=== PATIENT | male | born 1945 | race Caucasian/White ===

== ENCOUNTER 2017-02-05 05:46 | Day surgery (SDC) | payer MEDICARE ==
[2017-02-05] MEDS ORDERED: DIPRIVAN 200 MG/20 ML IV ONE (05:47)
[2017-02-05] MEDS ORDERED: Lactated Ringers 1,000 ML IV SCH (06:00)
[2017-02-05 08:08] VITALS: O2SAT 97
[2017-02-05 08:46] VITALS: BP 138/72; PULSE 72
--- NOTE | 2017-02-05 14:10 | OP ---
SURGERY DATE/TIME: 02/05/2017712 PREOPERATIVE DIAGNOSIS: Low abdominal pain and change in bowel habits. POSTOPERATIVE DIAGNOSIS: Small prostate nodule in the right lobe inferior portion of the prostate and normal colon. PROCEDURE: Colonoscopy. SURGEON: Dr. Kyle. ANESTHESIA: MAC. Medications given by anesthesia department. HISTORY: The patient is a 71 year-old white male patient presenting now for complaints of abdominal pain and some change in bowel habits. The patient was felt to need to have endoscopic evaluation. He was appraised of the risks of the procedure including the risk of perforation, phlebitis, untoward reaction to medication, bleeding and missed lesions. The patient verbalized his understanding and desired to have the procedure performed. DESCRIPTION OF PROCEDURE: The patient was given the medications by the anesthesia department. He had continuous pulse oximetry, ECG monitoring, intermittent blood pressure monitoring and tidal CO2 monitoring during the examination. He was placed in the left lateral decubitus position. A digital rectal examination was performed and revealed normal anal sphincter tone. There did appear to be a pea-sized nodule that was firm in the inferior portion of the right lobe of the prostate. The flexible Olympus pediatric colonoscope was used to intubate the rectum. A view of the colon was developed sequentially to the cecum. Upon insertion and withdrawal, including a retroflex view in the rectum, no mucosal lesions were encountered. The scope was removed from the patient who tolerated the procedure well and was sent back to OP recovery in good condition. The prep was noted to be fair to good.
== END 2017-02-05 08:30 | disposition home or self-care (01) ==
LOC: SDC 05:46 → EDSTATUS 09:43
PROVIDERS: ATTEND Family Medicine
PROC: 0DJD8ZZ Inspection of Lower Intestinal Tract, Via Natural or Artificial Opening Endoscopic (ICD-10-PCS; principal; 2017-02-05)
DX: R10.30 Lower abdominal pain, unspecified (principal); N40.2 Nodular prostate without lower urinary tract symptoms; R19.4 Change in bowel habit
CPT/HCPCS: 00810; 99100; J2704

== ENCOUNTER 2018-09-08 13:18 | Emergency (ER) | payer MEDICARE ==
[2018-09-08] MEDS ORDERED: Sodium Chloride 0.9% 1000 ML 1,000 ML IV STA (13:40)
[2018-09-08] MEDS ORDERED: Sodium Chloride 0.9% 1000 ML 1,000 ML ONE (13:57)
[2018-09-08 14:07] LABS: BASOPHIL % 0.4 % (0.0-0.4); Basophil (Absolute #) 0.03 (0-0.4); Eosinophil % 2.8 % (0.00-5.0); Eosinophil (Absolute #) 0.19 (0-0.5); Granulocyte Absolute (ANC) 4.54 (1.4-6.9); Granulocytes % 65.9 % (36.0-66.0); Hematocrit 39.6 % (42-50); Hemoglobin 13.6 gm/dl (12.5-18.0); Lymphocyte (Absolute #) 1.44 (1.0-4.6); Lymphocytes % 20.9 % (24.0-44.0); Mean Cell Volume 85.9 fl (78-100); Mean Corpuscular Hemoglobin 29.5 pg (26-32); Mean Corpuscular Hgb Concent. 34.3 g/dl (32-36); Mean Platelet Volume 10.5 fl (6-9.5); Monocyte (Absolute #) 0.69 (0.0-1.3); Platelet Count 217 K/mm3 (150-450); Red Blood Count 4.61 M/mm3 (4.1-5.6); Red Cell Distribution Width 15.3 % (11.5-14.0); White Blood Count 6.9 K/mm3 (4.0-10.5)
[2018-09-08 14:21] VITALS: BP 125/64
[2018-09-08 14:21] LABS: ALBUMIN 3.7 g/dL (3.5-5.0); ALKALINE PHOSPHATASE 55 U/L (38-126); ANION GAP 13.1 MEQ/L (5-15); BLOOD UREA NITROGEN 20 mg/dL (9-20); CHLORIDE 100 mmol/L (98-107); Calcium 9.1 mg/dL (8.4-10.2); Carbon Dioxide 27 mmol/L (22-30); Creatinine 1 0.73 mg/dL (0.66-1.25); Glucose 80 mg/dL (74-106); Potassium 4.2 mmol/L (3.5-5.1); SGOT/AST 18 U/L (17-59); SGPT/ALT 16 U/L (0-50); SODIUM 136 mmol/L (137-145); Total Protein 6.9 g/dL (6.3-8.2)
[2018-09-08 14:34] LABS: Appearance CLEAR (CLEAR); Bilirubin NEGATIVE (NEGATIVE); Blood NEGATIVE Ery/ul (0-5); Glucose NEGATIVE (NEGATIVE); Ketones NEGATIVE (NEGATIVE); Leukocyte Esterase NEGATIVE (NEGATIVE); Nitrite NEGATIVE (NEGATIVE); Protein,Urine Dip NEGATIVE (Negative); Specific Gravity 1.011 (1.005-1.025); Urobilinogen NEGATIVE mg/dL (0-1)
[2018-09-08 14:38] LABS: WBC NONE SEEN /HPF (0-5)
[2018-09-08 14:39] LABS: Bacteria NONE SEEN /HPF (NEGATIVE)
--- NOTE | 2018-09-08 15:10 | ERPHSYRPT ---
- History of Present Illness Historian: patient Exam Limitations: no limitations Patient Subjective Stated Complaint: pt here for bleeding,bright red after having a bm today, he states it was the one episode, had had blood clots in [place], co abd cramping, no nausea,or fever Triage Nursing Assessment: pt alert, walked in, resp easy, skin w/d/p, abd soft , no edema Physician History: Pt is a 73 y/o male that presented to the ER with bright red blood per rectum, with clots. Pt states, woke up today, and when he went to the BR had a gush of blood with clots. the pt presented to the ED, and his brought with her a tissue paper he used the showed bright red blood. No N/V mild abdominal discomfort. No SOB or cough. No chest pain 0or palpitations. No F/C/S. Timing/Duration: today Activities at Onset: none Quality: cramping Abdominal Pain Onset Location: generalized abdomen Pain Radiation: no radiation Severity of Pain-Max: mild Severity of Pain-Current: mild Modifying Factors: Improves With: nothing Allergies/Adverse Reactions: Iodinated Contrast- Oral and IV Dye [Iodinated Contrast Media - IV Dye] Allergy (Verified 09/08/18 13:34) diff breathing Ctnbpet-Ulc-Gcr Reductase Inhibitor Adverse Reaction (Verified 09/08/18 13:34) hurt all over/achiness Home Medications: Amlodipine Besylate 10 mg [Norvasc 10 MG] 10 mg PO DAILY 02/02/17 [History] Aspirin EC 81 mg [Ecotrin 81 mg] 81 mg PO DAILY 02/02/17 [History] Cholecalciferol (Vitamin D3) [Vitamin D] 1,000 unit PO DAILY 02/02/17 [ History] Finasteride 5 mg [Proscar 5 MG] 5 mg PO DAILY 02/02/17 [History] Glyburide 5 mg [Micronase 5 MG] 5 mg PO QAM 02/02/17 [History] Losartan Potassium [Cozaar] 100 mg PO DAILY 02/02/17 [History] Metformin HCl [Metformin ER Gastric] 1,000 mg PO BID 02/02/17 [History] PANTOPRAZOLE 40 mg Tablet [Protonix 40MG Tablet] 40 mg PO BID 02/02/17 [ History] Paroxetine HCl 20 mg [Paxil 20 MG] 20 mg PO DAILY 02/02/17 [History] Tamsulosin HCl 0.4 mg [Flomax 0.4 MG] 0.4 mg PO DAILY 02/02/17 [History] hydroCHLOROthiazide [Hydrochlorothiazide] 50 mg PO DAILY 02/02/17 [History] Metoprolol Succinate 50 mg [Toprol Xl 50 MG] 50 mg DAILY 09/08/18 [History ] Hx Influenza Vaccination/Date Given: Yes Hx Pneumococcal Vaccination/Date Given: Yes Immunizations Up to Date: Yes - Review of Systems Constitutional: No Fever, No Chills Eyes: No Symptoms Ears, Nose, & Throat: No Symptoms Respiratory: No Cough, No Dyspnea Cardiac: No Chest Pain, No Edema, No Syncope Abdominal/Gastrointestinal: Hematochezia (with clots) Genitourinary Symptoms: No Dysuria Musculoskeletal: No Back Pain, No Neck Pain Neurological: No Dizziness, No Focal Weakness, No Sensory Changes - Past Medical History Pertinent Past Medical History: Yes Neurological History: No Pertinent History ENT History: No Pertinent History Cardiac History: Coronary Artery Disease, High Cholesterol, Hypertension, Myocardial Infarction (CT) Respiratory History: COPD Endocrine Medical History: Diabetes Type II Musculoskeletal History: Arthritis GI Medical History: No Pertinent History History: No Pertinent History Psycho-Social History: Anxiety Male Reproductive Disorders: Prostate Cancer - Past Surgical History Past Surgical History: Yes Neuro Surgical History: No Pertinent History Cardiac: Cardiac Catheterization Respiratory: No Pertinent History Gastrointestinal: No Pertinent History Genitourinary: No Pertinent History Musculoskeletal: No Pertinent History, Orthopedic Surgery Male Surgical History: No Pertinent History Other Surgical History: hand,cyst removed.knee surg, nose surg prostate bx, skin cancer on nose and cyst on back removed - Social History Smoking Status: Former smoker Exposure to second hand smoke: No Drug Use: none Patient Lives Alone: No - Nursing Vital Signs Nursing Vital Signs: Initial Vital Signs Temperature 97.4 F 09/08/18 13:26 Pulse Rate 56 L 09/08/18 13:26 Respiratory Rate 16 09/08/18 13:26 Blood Pressure 139/76 09/08/18 13:26 Pain Scale Pain Intensity 5 - Physical Exam General Appearance: no apparent distress, alert Eye Exam: PERRL/EOMI, eyes nml inspection Ears, Nose, Throat Exam: normal ENT inspection, pharynx normal, moist mucous membranes Neck Exam: normal inspection, non-tender, supple, full range of motion Respiratory Exam: normal breath sounds, lungs clear, No respiratory distress Cardiovascular Exam: regular rate/rhythm, normal heart sounds Gastrointestinal/Abdomen Exam: soft, normal bowel sounds, other (non distended. Non tender on palpation) Rectal Exam: hemorrhoids, blood Extremity Exam: normal inspection, normal range of motion, pelvis stable Neurologic Exam: alert, oriented x 3, cooperative, normal mood/affect, nml cerebellar function, sensation nml, No motor deficits SpO2: 98 - Course Nursing assessment & vital signs reviewed: Yes Ordered Tests: Active Orders 24 hr Category Date Time Status CBC W DIFF Stat Lab 09/08/18 13:45 Completed CMP Stat Lab 09/08/18 13:45 Completed UA W/RFX UR CULTURE Stat Lab 09/08/18 14:17 Completed Medication Summary Discontinued Medications Generic Name Dose Route Start Last Admin Trade Name Adams PRN Reason Stop Dose Admin Sodium Chloride 1,000 mls @ 999 mls/hr 09/08/18 13:40 09/08/18 13:59 Sodium Chloride 0.9% 1000 Ml IV 09/08/18 14:40 999 mls/hr .Q1H1M STA Administration Sodium Chloride Confirm 09/08/18 13:57 Sodium Chloride 0.9% 1000 Ml Administered 09/08/18 13:58 Dose 1,000 mls @ ud .ROUTE .STK-MED ONE Lab/Rad Data: Laboratory Result Diagrams 09/08/18 13:45 09/08/18 13:45 Laboratory Results 09/08/18 09/08/18 09/08/18 Range/Units 14:17 13:45 13:45 WBC 6.9 (4.0-10.5) K/mm3 RBC 4.61 (4.1-5.6) M/mm3 Hgb 13.6 (12.5-18.0) gm/dl Hct 39.6 L (42-50) % MCV 85.9 (78-100) fl MCH 29.5 (26-32) pg MCHC 34.3 (32-36) g/dl RDW 15.3 H (11.5-14.0) % Plt Count 217 (150-450) K/mm3 MPV 10.5 H (6-9.5) fl Gran % 65.9 (36.0-66.0) % Eos # (Auto) 0.19 (0-0.5) Absolute Lymphs (auto) 1.44 (1.0-4.6) Absolute Monos (auto) 0.69 (0.0-1.3) Lymphocytes % 20.9 L (24.0-44.0) % Monocytes % 10.0 (0.0-12.0) % Eosinophils % 2.8 (0.00-5.0) % Basophils % 0.4 (0.0-0.4) % Absolute Granulocytes 4.54 (1.4-6.9) Basophils # 0.03 (0-0.4) Sodium 136 L (137-145) mmol/L Potassium 4.2 (3.5-5.1) mmol/L Chloride 100 (98-107) mmol/L Carbon Dioxide 27 (22-30) mmol/L Anion Gap 13.1 (5-15) MEQ/L BUN 20 (9-20) mg/dL Creatinine 0.73 (0.66-1.25) mg/dL Estimated GFR > 60.0 ML/MIN Glucose 80 (74-106) mg/dL Calcium 9.1 (8.4-10.2) mg/dL Total Bilirubin 0.30 (0.2-1.3) mg/dL AST 18 (17-59) U/L ALT 16 (0-50) U/L Alkaline Phosphatase 55 (38-126) U/L Serum Total Protein 6.9 (6.3-8.2) g/dL Albumin 3.7 (3.5-5.0) g/dL Urine Color YELLOW (YELLOW) Urine Appearance CLEAR (CLEAR) Urine pH 6.0 (5-6) Ur Specific [place] 1.011 (1.005-1.025) Urine Protein NEGATIVE (Negative) Urine Ketones NEGATIVE (NEGATIVE) Urine Blood NEGATIVE (0-5) Mikhail/ul Urine Nitrite NEGATIVE (NEGATIVE) Urine Bilirubin NEGATIVE (NEGATIVE) Urine Urobilinogen NEGATIVE (0-1) mg/dL Ur Leukocyte Esterase NEGATIVE (NEGATIVE) Urine WBC (Auto) NONE SEEN (0-5) /HPF Urine RBC (Auto) NONE (0-2) /HPF U Epithel Cells (Auto) NONE (FEW) /HPF Urine Bacteria (Auto) NONE SEEN (NEGATIVE) /HPF Urine Culture Reflexed NO (NO) Urine Glucose NEGATIVE (NEGATIVE) mg/dL - Progress Progress: unchanged Progress Note: 09/08/18 15:08 Pt had lab work that showed Hgb of 13.9. Pt did not have any more bleeding episodes. All other lab work was normal. Pt had a colonoscopy a year ago, with Dr Kyle, that was negative for polyps. Pt probably had diverticular bleed. He should f/u with Dr Kyle to schedule repeat colonoscopy. If bleed happens again, pt should come back to the ER. Discussed with : Anabella Will see patient in: office Counseled pt/family regarding: need for follow-up - Departure Departure Disposition: Home Clinical Impression: Hemorrhage of large intestine due to diverticular disease Condition: Stable Critical Care Time: No Referrals: JOSEPH KYLE [Primary Care Provider] - Additional Instructions: Pt should f/u with Dr Kyle for repeat colonoscopy. If GI bleed happens again , pt should come back to the ED.
[2018-09-08 15:19] VITALS: PULSE 58; O2SAT 97
== END 2018-09-08 15:18 | disposition home or self-care (01) ==
LOC: ED 13:18
DX: K57.31 Diverticulosis of large intestine without perforation or abscess with bleeding (principal)
CPT/HCPCS: 36415; 80053; 81001; 85025; 96360; 99284

== ENCOUNTER 2018-09-13 05:37 | Day surgery (SDC) | payer MEDICARE ==
[2018-09-13] MEDS ORDERED: Ephedrine Sulfate 50 MG/ML IV ONE (05:38)
[2018-09-13] MEDS ORDERED: DIPRIVAN 200 MG/20 ML IV ONE (05:38)
[2018-09-13] MEDS ORDERED: Lactated Ringers 1,000 ML IV SCH (06:30)
--- NOTE | 2018-09-13 09:23 | OP ---
SURGERY DATE/TIME: 09/13/201806 PREOPERATIVE DIAGNOSIS: Rectal bleeding. POSTOPERATIVE DIAGNOSES: 1) Normal EGD. 2) Radiation proctitis. PROCEDURES: 1) Esophagogastroduodenoscopy. 2) Colonoscopy. SURGEON: Dr. Kyle. ANESTHESIA: Medications were given by the anesthesia department. BRIEF HISTORY: The patient is a 73 year old white male patient presenting now for complaints of rectal bleeding. He reports he is writing it off on hemorrhoids although on exam he has no significant hemorrhoidal tissues nor fissure present. He has history of previously having radiation for prostate cancer however. The patient was felt the need to have endoscopic evaluation. He was appraised of the risks of the procedure including the risk of perforation, phlebitis, untoward reaction to medication, bleeding and missed lesions. The patient verbalized his understanding and desired to have the procedure performed. DESCRIPTION OF PROCEDURE: The patient was given the medications by the anesthesia department. He had continuous pulse oximetry, ECG monitoring, intermittent blood pressure monitoring and tidal CO2 monitoring during the examination. He was placed in the left lateral decubitus position. A bite block was placed and the flexible Olympus gastroscope was used to intubate the oropharynx. A view of the larynx was obtained and was normal. The scope was easily introduced in the esophagus which appeared normal throughout its length. The stomach was entered where normal gastric rugal folds were seen and these distended nicely with insufflation of air. The scope was passed along the greater curvature of the stomach to the pylorus which was intubated. The duodenum inspected and found to be normal. The scope is withdrawn towards the stomach. A retroflex view was obtained of the lesser curvature, fundus and cardia regions of the stomach and these all appeared normal. The scope was withdrawn from the patient. Next, a digital rectal exam was performed and revealed normal anal sphincter tone and no masses. The prostate appeared to be somewhat firm but nodules were felt. The flexible Olympus pediatric colonoscope was used to intubate the rectum. A view of the colon was developed sequentially to the cecum. Upon insertion and withdrawal, including a retroflex view in the rectum was noted what appeared to be neurovascular changes in the rectum area likely due to the previous history of radiation. No active bleeding was noted at this time. No other mucosal lesions were encountered. The scope was removed from the patient who tolerated the procedure well and was sent back to OP recovery in good condition. The prep was noted to be fair to good.
[2018-09-13 09:29] VITALS: O2SAT 97
[2018-09-13 09:35] VITALS: BP 143/81; PULSE 55
== END 2018-09-13 09:30 | disposition home or self-care (01) ==
LOC: SDC 05:37
PROVIDERS: ATTEND Family Medicine
DX: K62.5 Hemorrhage of anus and rectum (principal); K62.7 Radiation proctitis; Z85.46 Personal history of malignant neoplasm of prostate; E11.9 Type 2 diabetes mellitus without complications; Z79.84 Long term (current) use of oral hypoglycemic drugs; Z79.899 Other long term (current) drug therapy
CPT/HCPCS: 82962; 99100; J2704

== ENCOUNTER 2019-06-09 12:50 | Emergency (ER) | payer MEDICARE ==
--- NOTE | 2019-06-09 13:09 | ERPHSYRPT ---
- History of Present Illness Time Seen by Provider: 06/09/19 13:09 Source: patient, family Exam Limitations: no limitations Physician History: This is a 74-year-old gentleman who has a chronic history of intermittent diarrhea, diabetes and hypertension. patient was feeling weak having diarrhea and had a sore throat as well as a cough on the prior to this evaluation. Patient was evaluated by his primary care physician Dr. Kyle on the Sunday prior to this evaluation. His symptoms have not improved. Patient feels the diarrhea might be a little worse. Patient is feeling weak and continues to have a sore throat and wheezing. Patient denies chest pain, he denies abdominal pain. Patient denies nausea and vomiting. Timing/Duration: day(s) (3 to 4) Severity: moderate Associated Symptoms: cough, weakness, other (Sore throat), No nausea, No vomiting, No abdominal pain, No chest pain, No fever Allergies/Adverse Reactions: Iodinated Contrast Media [Iodinated Contrast Media - IV Dye] Allergy (Verified 06/09/19 13:21) diff breathing Rglzkik-Hxx-Sra Reductase Inhibitor Adverse Reaction (Verified 06/09/19 13:21) hurt all over/achiness Home Medications: Amlodipine Besylate 10 mg [Norvasc 10 MG] 10 mg PO DAILY 02/02/17 [History] Cholecalciferol (Vitamin D3) [Vitamin D] 1,000 unit PO DAILY 02/02/17 [ History] Finasteride 5 mg [Proscar 5 MG] 5 mg PO DAILY 02/02/17 [History] Glyburide 5 mg [Micronase 5 MG] 5 mg PO QAM 02/02/17 [History] Losartan Potassium [Cozaar] 100 mg PO DAILY 02/02/17 [History] Metformin HCl [Metformin ER Gastric] 1,000 mg PO BID 02/02/17 [History] PANTOPRAZOLE 40 mg Tablet [Protonix 40MG Tablet] 40 mg PO BID 02/02/17 [ History] Paroxetine HCl 20 mg [Paxil 20 MG] 20 mg PO DAILY 02/02/17 [History] Tamsulosin HCl 0.4 mg [Flomax 0.4 MG] 0.4 mg PO DAILY 02/02/17 [History] hydroCHLOROthiazide [Hydrochlorothiazide] 50 mg PO DAILY 02/02/17 [History] Metoprolol Succinate 50 mg [Toprol Xl 50 MG] 50 mg DAILY 09/08/18 [History ] Aspirin EC 81 mg [Ecotrin 81 mg] 81 mg PO DAILY 06/09/19 [History] Atorvastatin Calcium [Lipitor] 10 mg PO DAILY 06/09/19 [History] Clonidine HCl 0.1 mg [Catapres 0.1 MG] 0.1 mg PO UD 06/09/19 [History] Glipizide 5 mg [Glucotrol 5 MG] 5 mg PO DAILY 06/09/19 [History] Hx Influenza Vaccination/Date Given: Yes Hx Pneumococcal Vaccination/Date Given: Yes - Review of Systems Constitutional: Weakness Eyes: No Symptoms Ears, Nose, & Throat: No Symptoms Respiratory: Cough Cardiac: No Symptoms Abdominal/Gastrointestinal: Diarrhea, Constipation, No Nausea, No Vomiting Genitourinary Symptoms: No Symptoms Musculoskeletal: No Symptoms Skin: No Symptoms Neurological: No Symptoms Psychological: No Symptoms Endocrine: No Symptoms Hematologic/Lymphatic: No Symptoms Immunological/Allergic: No Symptoms All Other Systems: Reviewed and Negative - Past Medical History Pertinent Past Medical History: Yes Neurological History: No Pertinent History ENT History: No Pertinent History Cardiac History: Coronary Artery Disease, High Cholesterol, Hypertension, Myocardial Infarction ([place]) Respiratory History: COPD Endocrine Medical History: Diabetes Type II Musculoskeletal History: Arthritis GI Medical History: GERD, Hernia, Other History: No Pertinent History Psycho-Social History: Anxiety Male Reproductive Disorders: Prostate Cancer Other Medical History: hiatal hernia and umbilical hernia - Past Surgical History Past Surgical History: Yes Neuro Surgical History: No Pertinent History Cardiac: Cardiac Catheterization Respiratory: No Pertinent History Gastrointestinal: No Pertinent History Genitourinary: No Pertinent History Musculoskeletal: No Pertinent History, Orthopedic Surgery Male Surgical History: No Pertinent History Other Surgical History: right handtendon, back and nose cyst removed, right knee surg, nose surg skin cancer, prostate bx with radiation beading - Social History Smoking Status: Former smoker Exposure to second hand smoke: No Drug Use: none Patient Lives Alone: No - Nursing Vital Signs Nursing Vital Signs: Initial Vital Signs Temperature 97.1 F 06/09/19 13:14 Pulse Rate 69 06/09/19 13:14 Respiratory Rate 18 06/09/19 13:14 Blood Pressure 127/71 06/09/19 13:14 O2 Sat by Pulse Oximetry 94 L 06/09/19 13:14 Pain Scale Pain Intensity 5 - Physical Exam General Appearance: no apparent distress, alert, anxiety, obese Eye Exam: PERRL/EOMI, eyes nml inspection Ears, Nose, Throat Exam: normal ENT inspection, moist mucous membranes Neck Exam: normal inspection, non-tender, supple, full range of motion Respiratory Exam: normal breath sounds, lungs clear, airway intact, No chest tenderness, No respiratory distress Cardiovascular Exam: regular rate/rhythm, normal heart sounds, normal peripheral pulses Gastrointestinal/Abdomen Exam: soft, normal bowel sounds, No tenderness Rectal Exam: not done Back Exam: normal inspection, normal range of motion, No CVA tenderness, No vertebral tenderness Extremity Exam: normal inspection, normal range of motion, pelvis stable Neurologic Exam: alert, oriented x 3, cooperative, 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 Skin Exam: normal color, warm, dry Lymphatic Exam: No adenopathy SpO2 Interpretation: borderline oxygenation O2 Delivery: Room Air - Course Nursing assessment & vital signs reviewed: Yes EKG Interpreted by Me: RATE (63), Sinus Rhythm, NORMAL AXIS, NORMAL INTERVALS, NORMAL QRS, Other (No significant acute changes when compared to EKG performed on August 23, 2015) Ordered Tests: Active Orders 24 hr Category Date Time Status IV Insertion STAT Care 06/09/19 13:34 Active CHEST 1 VIEW (PORTABLE) Stat Exams 06/09/19 13:34 Completed AMYLASE Stat Lab 06/09/19 13:45 Completed CBC W DIFF Stat Lab 06/09/19 13:45 Completed CMP Stat Lab 06/09/19 13:45 Completed LIPASE Stat Lab 06/09/19 13:45 Completed Lactic Acid Stat Lab 06/09/19 13:34 Completed [place] Screen Stat Lab 06/09/19 13:45 Completed TROPONIN Q3H Lab 06/09/19 13:45 Completed TROPONIN Q3H Lab 06/09/19 16:45 Ordered TROPONIN Q3H Lab 06/09/19 19:45 Ordered TROPONIN Q3H Lab 06/09/19 22:45 Ordered TROPONIN Q3H Lab 06/10/19 01:45 Ordered UA W/RFX UR CULTURE Stat Lab 06/09/19 Completed Respiratory Therapy Assessment DAILY RT 06/09/19 13:53 Active Medication Summary Discontinued Medications Generic Name Dose Route Start Last Admin Trade Name Adams PRN Reason Stop Dose Admin Albuterol Sulfate Confirm 06/09/19 13:34 Proventil 2.5 Mg/3 Ml Neb Administered 06/09/19 13:35 Dose 2.5 mg IH .STK-MED ONE Albuterol Sulfate 2.5 mg 06/09/19 13:52 06/09/19 13:53 Proventil Solution 2.5 Mg/0.5 Ml IH 06/09/19 13:53 2.5 mg STAT ONE Administration Sodium Chloride 1,000 mls @ 999 mls/hr 06/09/19 13:34 06/09/19 15:16 Sodium Chloride 0.9% 1000 Ml IV 06/09/19 14:34 Infused .Q1H1M STA Infusion Sodium Chloride Confirm 06/09/19 13:42 Sodium Chloride 0.9% 1000 Ml Administered 06/09/19 13:43 Dose 1,000 mls @ ud .ROUTE .STK-MED ONE Oseltamivir Phosphate 75 mg 06/09/19 15:18 06/09/19 15:28 Tamiflu 75mg Capsule PO 06/09/19 15:19 75 mg STAT ONE Administration Oseltamivir Phosphate Confirm 06/09/19 15:25 Tamiflu 75mg Capsule Administered 06/09/19 15:26 Dose 75 mg PO .STK-MED ONE Lab/Rad Data: Laboratory Result Diagrams 06/09/19 13:45 06/09/19 13:45 Laboratory Results 06/09/19 06/09/19 06/09/19 Range/Units Unknown 14:30 13:45 WBC (4.0-10.5) K/mm3 RBC (4.1-5.6) M/mm3 Hgb (12.5-18.0) gm/dl Hct (42-50) % MCV (78-100) fl MCH (26-32) pg MCHC (32-36) g/dl RDW (11.5-14.0) % Plt Count (150-450) K/mm3 MPV (7.5-11.0) fl Gran % (36.0-66.0) % Eos # (Auto) (0-0.5) Absolute Lymphs (auto) (1.0-4.6) Absolute Monos (auto) (0.0-1.3) Lymphocytes % (24.0-44.0) % Monocytes % (0.0-12.0) % Eosinophils % (0.00-5.0) % Basophils % (0.0-0.4) % Absolute Granulocytes (1.4-6.9) Basophils # (0-0.4) Sodium (137-145) mmol/L Potassium (3.5-5.1) mmol/L Chloride (98-107) mmol/L Carbon Dioxide (22-30) mmol/L Anion Gap (5-15) MEQ/L BUN (9-20) mg/dL Creatinine (0.66-1.25) mg/dL Estimated GFR ML/MIN Glucose (74-106) mg/dL Lactic Acid (0.4-2.0) Calcium (8.4-10.2) mg/dL Total Bilirubin (0.2-1.3) mg/dL AST (17-59) U/L ALT (0-50) U/L Alkaline Phosphatase (38-126) U/L Troponin I (0.000-0.034) ng/mL Serum Total Protein (6.3-8.2) g/dL Albumin (3.5-5.0) g/dL Amylase (30-110) U/L Lipase (23-300) U/L Urine Color YELLOW (YELLOW) Urine Appearance SLIGHTLY CLOUDY (CLEAR) Urine pH 6.0 (5-6) Ur Specific [place] 1.011 (1.005-1.025) Urine Protein NEGATIVE (Negative) Urine Ketones NEGATIVE (NEGATIVE) Urine Blood NEGATIVE (0-5) Mikhail/ul Urine Nitrite NEGATIVE (NEGATIVE) Urine Bilirubin NEGATIVE (NEGATIVE) Urine Urobilinogen NEGATIVE (0-1) mg/dL Ur Leukocyte Esterase NEGATIVE (NEGATIVE) Urine WBC (Auto) NONE (0-5) /HPF Urine RBC (Auto) NONE (0-2) /HPF U Hyaline Cast (Auto) 26-50 (0-2) /LPF U Epithel Cells (Auto) NONE (FEW) /HPF Urine Bacteria (Auto) NONE (NEGATIVE) /HPF Urine Mucus (Auto) SLIGHT (NEGATIVE) /HPF Urine Culture Reflexed NO (NO) Urine Glucose NEGATIVE (NEGATIVE) mg/dL Stl C. cayetanensis PCR NEGATIVE (NEGATIVE) Stl Adenov F 40/41 PCR NEGATIVE (NEGATIVE) Stool Astrovirus (PCR) NEGATIVE (NEGATIVE) Stool Cryptosporidium PCR NEGATIVE (NEGATIVE) Stool EPEC (PCR) NEGATIVE (NEGATIVE) Stool EAEC (PCR) NEGATIVE (NEGATIVE) Stl E. histolytica PCR NEGATIVE (NEGATIVE) Stl P. shigelloides PCR NEGATIVE (NEGATIVE) Stool Sapovirus (PCR) NEGATIVE (NEGATIVE) St Y.enterocolitica PCR NEGATIVE (NEGATIVE) Stool Vibrio (PCR) NEGATIVE (NEGATIVE) Stl Vibrio cholerae PCR NEGATIVE (NEGATIVE) Stl Norovirus GI/GII PCR NEGATIVE (NEGATIVE) Campylobacter (PCR) NEGATIVE (NEGATIVE) C. difficile (PCR) NEGATIVE (NEGATIVE) Enterotoxigenic E. coli NEGATIVE (NEGATIVE) E.coli Shiga Toxins NEGATIVE (NEGATIVE) Giardia lamblia NEGATIVE (NEGATIVE) Monoscreen (Negative) Influenza Type A Ag POSITIVE (NEGATIVE) Influenza Type B Ag NEGATIVE (NEGATIVE) RSV (PCR) NEGATIVE (Negative) Rotavirus A (PCR) NEGATIVE (NEGATIVE) Salmonella (PCR) NEGATIVE (NEGATIVE) Shigella (PCR) NEGATIVE (NEGATIVE) Group A Strep Antibody NEGATIVE (NEGATIVE) 06/09/19 06/09/19 06/09/19 Range/Units 13:45 13:45 13:45 WBC (4.0-10.5) K/mm3 RBC (4.1-5.6) M/mm3 Hgb (12.5-18.0) gm/dl Hct (42-50) % MCV (78-100) fl MCH (26-32) pg MCHC (32-36) g/dl RDW (11.5-14.0) % Plt Count (150-450) K/mm3 MPV (7.5-11.0) fl Gran % (36.0-66.0) % Eos # (Auto) (0-0.5) Absolute Lymphs (auto) (1.0-4.6) Absolute Monos (auto) (0.0-1.3) Lymphocytes % (24.0-44.0) % Monocytes % (0.0-12.0) % Eosinophils % (0.00-5.0) % Basophils % (0.0-0.4) % Absolute Granulocytes (1.4-6.9) Basophils # (0-0.4) Sodium 135 L (137-145) mmol/L Potassium 4.5 (3.5-5.1) mmol/L Chloride 101 (98-107) mmol/L Carbon Dioxide 25 (22-30) mmol/L Anion Gap 13.8 (5-15) MEQ/L BUN 28 H (9-20) mg/dL Creatinine 1.45 H (0.66-1.25) mg/dL Estimated GFR 50.6 ML/MIN Glucose 85 (74-106) mg/dL Lactic Acid (0.4-2.0) Calcium 8.9 (8.4-10.2) mg/dL Total Bilirubin 0.60 (0.2-1.3) mg/dL AST 28 (17-59) U/L ALT 18 (0-50) U/L Alkaline Phosphatase 70 (38-126) U/L Troponin I < 0.012 (0.000-0.034) ng/mL Serum Total Protein 7.9 (6.3-8.2) g/dL Albumin 4.3 (3.5-5.0) g/dL Amylase 84 (30-110) U/L Lipase 160 (23-300) U/L Urine Color (YELLOW) Urine Appearance (CLEAR) Urine pH (5-6) Ur Specific [place] (1.005-1.025) Urine Protein (Negative) Urine Ketones (NEGATIVE) Urine Blood (0-5) Mikhail/ul Urine Nitrite (NEGATIVE) Urine Bilirubin (NEGATIVE) Urine Urobilinogen (0-1) mg/dL Ur Leukocyte Esterase (NEGATIVE) Urine WBC (Auto) (0-5) /HPF Urine RBC (Auto) (0-2) /HPF U Hyaline Cast (Auto) (0-2) /LPF U Epithel Cells (Auto) (FEW) /HPF Urine Bacteria (Auto) (NEGATIVE) /HPF Urine Mucus (Auto) (NEGATIVE) /HPF Urine Culture Reflexed (NO) Urine Glucose (NEGATIVE) mg/dL Stl C. cayetanensis PCR (NEGATIVE) Stl Adenov F 40/41 PCR (NEGATIVE) Stool Astrovirus (PCR) (NEGATIVE) Stool Cryptosporidium PCR (NEGATIVE) Stool EPEC (PCR) (NEGATIVE) Stool EAEC (PCR) (NEGATIVE) Stl E. histolytica PCR (NEGATIVE) Stl P. shigelloides PCR (NEGATIVE) Stool Sapovirus (PCR) (NEGATIVE) St Y.enterocolitica PCR (NEGATIVE) Stool Vibrio (PCR) (NEGATIVE) Stl Vibrio cholerae PCR (NEGATIVE) Stl Norovirus GI/GII PCR (NEGATIVE) Campylobacter (PCR) (NEGATIVE) C. difficile (PCR) (NEGATIVE) Enterotoxigenic E. coli (NEGATIVE) E.coli Shiga Toxins (NEGATIVE) Giardia lamblia (NEGATIVE) Monoscreen NEGATIVE (Negative) Influenza Type A Ag (NEGATIVE) Influenza Type B Ag (NEGATIVE) RSV (PCR) (Negative) Rotavirus A (PCR) (NEGATIVE) Salmonella (PCR) (NEGATIVE) Shigella (PCR) (NEGATIVE) Group A Strep Antibody (NEGATIVE) 06/09/19 06/09/19 Range/Units 13:45 13:34 WBC 7.1 (4.0-10.5) K/mm3 RBC 5.14 (4.1-5.6) M/mm3 Hgb 14.6 (12.5-18.0) gm/dl Hct 43.8 (42-50) % MCV 85.2 (78-100) fl MCH 28.4 (26-32) pg MCHC 33.3 (32-36) g/dl RDW 14.8 H (11.5-14.0) % Plt Count 248 (150-450) K/mm3 MPV 10.4 (7.5-11.0) fl Gran % 61.4 (36.0-66.0) % Eos # (Auto) 0.24 (0-0.5) Absolute Lymphs (auto) 1.25 (1.0-4.6) Absolute Monos (auto) 1.23 (0.0-1.3) Lymphocytes % 17.6 L (24.0-44.0) % Monocytes % 17.3 H (0.0-12.0) % Eosinophils % 3.4 (0.00-5.0) % Basophils % 0.3 (0.0-0.4) % Absolute Granulocytes 4.36 (1.4-6.9) Basophils # 0.02 (0-0.4) Sodium (137-145) mmol/L Potassium (3.5-5.1) mmol/L Chloride (98-107) mmol/L Carbon Dioxide (22-30) mmol/L Anion Gap (5-15) MEQ/L BUN (9-20) mg/dL Creatinine (0.66-1.25) mg/dL Estimated GFR ML/MIN Glucose (74-106) mg/dL Lactic Acid 1.8 (0.4-2.0) Calcium (8.4-10.2) mg/dL Total Bilirubin (0.2-1.3) mg/dL AST (17-59) U/L ALT (0-50) U/L Alkaline Phosphatase (38-126) U/L Troponin I (0.000-0.034) ng/mL Serum Total Protein (6.3-8.2) g/dL Albumin (3.5-5.0) g/dL Amylase (30-110) U/L Lipase (23-300) U/L Urine Color (YELLOW) Urine Appearance (CLEAR) Urine pH (5-6) Ur Specific [place] (1.005-1.025) Urine Protein (Negative) Urine Ketones (NEGATIVE) Urine Blood (0-5) Mikhail/ul Urine Nitrite (NEGATIVE) Urine Bilirubin (NEGATIVE) Urine Urobilinogen (0-1) mg/dL Ur Leukocyte Esterase (NEGATIVE) Urine WBC (Auto) (0-5) /HPF Urine RBC (Auto) (0-2) /HPF U Hyaline Cast (Auto) (0-2) /LPF U Epithel Cells (Auto) (FEW) /HPF Urine Bacteria (Auto) (NEGATIVE) /HPF Urine Mucus (Auto) (NEGATIVE) /HPF Urine Culture Reflexed (NO) Urine Glucose (NEGATIVE) mg/dL Stl C. cayetanensis PCR (NEGATIVE) Stl Adenov F 40/41 PCR (NEGATIVE) Stool Astrovirus (PCR) (NEGATIVE) Stool Cryptosporidium PCR (NEGATIVE) Stool EPEC (PCR) (NEGATIVE) Stool EAEC (PCR) (NEGATIVE) Stl E. histolytica PCR (NEGATIVE) Stl P. shigelloides PCR (NEGATIVE) Stool Sapovirus (PCR) (NEGATIVE) St Y.enterocolitica PCR (NEGATIVE) Stool Vibrio (PCR) (NEGATIVE) Stl Vibrio cholerae PCR (NEGATIVE) Stl Norovirus GI/GII PCR (NEGATIVE) Campylobacter (PCR) (NEGATIVE) C. difficile (PCR) (NEGATIVE) Enterotoxigenic E. coli (NEGATIVE) E.coli Shiga Toxins (NEGATIVE) Giardia lamblia (NEGATIVE) Monoscreen (Negative) Influenza Type A Ag (NEGATIVE) Influenza Type B Ag (NEGATIVE) RSV (PCR) (Negative) Rotavirus A (PCR) (NEGATIVE) Salmonella (PCR) (NEGATIVE) Shigella (PCR) (NEGATIVE) Group A Strep Antibody (NEGATIVE) - Progress Progress: improved Progress Note: 06/09/19 15:19 Chest x-ray reveals no acute process Counseled pt/family regarding: lab results, diagnosis, need for follow-up, rad results - Departure Departure Disposition: Home Clinical Impression: Influenza A Condition: Stable Critical Care Time: No Referrals: JOSEPH KYLE [Primary Care Provider] - Additional Instructions: Drink plenty of fluids. Use Tylenol ibuprofen for pain and fever. Follow-up with your primary care physician for persistent symptoms. Medication as prescribed. Stop your Augmentin antibiotics. Prescriptions: Hydrocodone Bit/Acetaminophen [Hydrocodone-Acetaminophen Soln] 10 ml PO Q6H # 120 ml Oseltamivir 75 mg [Tamiflu 75MG Capsule] 75 mg PO BID #10 cap
[2019-06-09] MEDS ORDERED: Sodium Chloride 0.9% 1000 ML 1,000 ML IV STA (13:34)
[2019-06-09] MEDS ORDERED: PROVENTIL 2.5 MG/3 ML NEB IH ONE (13:34)
[2019-06-09] MEDS ORDERED: Sodium Chloride 0.9% 1000 ML 1,000 ML ONE (13:42)
[2019-06-09] MEDS ORDERED: PROVENTIL Solution 2.5 MG/0.5 ML IH ONE (13:52)
[2019-06-09 13:53] LABS: Absolute Neutrophil Ct (ANC) 4.36 (1.4-6.9); BASOPHIL % 0.3 % (0.0-0.4); Basophil (Absolute #) 0.02 (0-0.4); Eosinophil % 3.4 % (0.00-5.0); Eosinophil (Absolute #) 0.24 (0-0.5); Hematocrit 43.8 % (42-50); Hemoglobin 14.6 gm/dl (12.5-18.0); Lymphocyte (Absolute #) 1.25 (1.0-4.6); Lymphocytes % 17.6 % (24.0-44.0); Mean Cell Volume 85.2 fl (78-100); Mean Corpuscular Hemoglobin 28.4 pg (26-32); Mean Corpuscular Hgb Concent. 33.3 g/dl (32-36); Mean Platelet Volume 10.4 fl (7.5-11.0); Monocyte (Absolute #) 1.23 (0.0-1.3); Monocytes % 17.3 % (0.0-12.0); Neutrophil % 61.4 % (36.0-66.0); Platelet Count 248 K/mm3 (150-450); Red Blood Count 5.14 M/mm3 (4.1-5.6); Red Cell Distribution Width 14.8 % (11.5-14.0); White Blood Count 7.1 K/mm3 (4.0-10.5)
--- NOTE | 2019-06-09 13:56 | XRAY ---
Indication: Cough and wheezing. Comparison: July 20, 2007. Portable chest again demonstrates chronic left hemidiaphragm elevation more than before. Remaining heart and lungs normal. Bony thorax intact. No new/acute findings.
[2019-06-09 14:05] LABS: ALBUMIN 4.3 g/dL (3.5-5.0); ANION GAP 13.8 MEQ/L (5-15); BILIRUBIN,TOTAL 0.6 mg/dL (0.2-1.3); Calcium 8.9 mg/dL (8.4-10.2); Creatinine 1 1.45 mg/dL (0.66-1.25); Total Protein 7.9 g/dL (6.3-8.2)
[2019-06-09 14:09] LABS: Potassium 4.5 mmol/L (3.5-5.1)
[2019-06-09 14:47] LABS: INFLUENZA A POSITIVE (NEGATIVE); INFLUENZA B NEGATIVE (NEGATIVE); RESPIRATORY SYNCTIAL VIRUS NEGATIVE (Negative)
[2019-06-09] MEDS ORDERED: Tamiflu 75MG Capsule PO ONE ×2 (15:18→15:25)
[2019-06-09 15:31] VITALS: BP 144/72; PULSE 66; O2SAT 98
[2019-06-09 15:56] LABS: Adenovirus F 40/41 NEGATIVE (NEGATIVE); Astrovirus NEGATIVE (NEGATIVE); C. Difficile Organism NEGATIVE (NEGATIVE); Campylobacter NEGATIVE (NEGATIVE); Cryptosporidium NEGATIVE (NEGATIVE); Cyclospora cayentanensis NEGATIVE (NEGATIVE); Entamoeaba histolytica NEGATIVE (NEGATIVE); Enteroaggregative E.coli NEGATIVE (NEGATIVE); Enteropathogenic E.coli NEGATIVE (NEGATIVE); Enterotoxigenic E.coli NEGATIVE (NEGATIVE); Giardia lamblia NEGATIVE (NEGATIVE); Norovirus GI/GII NEGATIVE (NEGATIVE); Plesiomonas shigelloides NEGATIVE (NEGATIVE); Rotavirus A NEGATIVE (NEGATIVE); Salmonella NEGATIVE (NEGATIVE); Sapovirus NEGATIVE (NEGATIVE); Shiga-like toxin prod.E.coli NEGATIVE (NEGATIVE); Vibrio NEGATIVE (NEGATIVE); Vibrio cholerae NEGATIVE (NEGATIVE); Yersinia enterocolitica NEGATIVE (NEGATIVE)
[2019-06-09 16:27] LABS: Appearance SLIGHTLY CLOUDY (CLEAR); Bilirubin NEGATIVE (NEGATIVE); Blood NEGATIVE Ery/ul (0-5); Glucose NEGATIVE (NEGATIVE); Hyaline Casts 26-50 /LPF (0-2); Ketones NEGATIVE (NEGATIVE); Leukocyte Esterase NEGATIVE (NEGATIVE); Mucus SLIGHT /HPF (NEGATIVE); Nitrite NEGATIVE (NEGATIVE); Protein,Urine Dip NEGATIVE (Negative); Specific Gravity 1.011 (1.005-1.025); Urobilinogen NEGATIVE mg/dL (0-1)
== END 2019-06-09 16:32 | disposition home or self-care (01) ==
LOC: ED 12:50
DX: J09.X2 Influenza due to identified novel influenza A virus with other respiratory manifestations (principal); R19.7 Diarrhea, unspecified; E11.9 Type 2 diabetes mellitus without complications; I10 Essential (primary) hypertension; Z79.899 Other long term (current) drug therapy
CPT/HCPCS: 36000; 36415; 71045; 80053; 81001; 82150; 83605; 83690; 84484; 85025; 86308; 87507; 87631; 87651; 94640; 96360; 99284; J7609; A9270-GY

== ENCOUNTER 2019-06-11 09:38 | Observation (INO) | payer MEDICARE ==
[2019-06-11] MEDS ORDERED: PROVENTIL 2.5 MG/3 ML NEB IH ONE ×2 (10:04→10:14)
[2019-06-11] MEDS ORDERED: solu-MEDROL 125 MG IV ONE (10:04)
[2019-06-11] MEDS ORDERED: solu-MEDROL 125 MG ONE (10:10)
--- NOTE | 2019-06-11 10:15 | ERPHSYRPT ---
- History of Present Illness Time Seen by Provider: 06/11/19 10:00 Exam Limitations: no limitations Patient Subjective Stated Complaint: Pt was diagnosed with flu A a couple of days ago and still has cough, aches, SOB, thirsty, muscles cramping, cold chills Triage Nursing Assessment: Pt brought to the ER by his , vitals wnl, wheezing throughout lungs, non productive cough, denies pain, skin N/W/D Physician History: Patient is a 74-year-old male presents to our ED with complaints of cough shortness of breath and wheezing. Patient was in our ED approximately 2 days ago for the same. Patient was diagnosed with influenza. Patient was treated with Tamiflu. Patient also complains of dry mouth and muscle cramping. Symptoms have been constant. No specific worsening improving factors. Symptoms are moderate in intensity. Patient was started on Augmentin 5 days ago. Patient states Augmentin upsets his stomach and this medication was discontinued 2 days ago at his last ED visit. No chest pain. No nausea or vomiting. No diaphoresis. No fever. at bedside. They voiced no other complaints at this time. Timing/Duration: day(s) (5 days) Activities at Onset: none Severity of Dyspnea-Max: moderate Severity of Dyspnea-Current: moderate Possible Cause: no prior episodes Modifying Factors: Improves With: activity Associated Symptoms: constant, anxiety, cough, wheezing, muscle spasms feet, muscle spasms hands, No chest pain/discomfort, No edema, No fever, No insomnia, No loss of appetite, No lightheadedness, No weakness, No ankle swelling, No hemoptysis, No calf pain, No heaviness, No heart racing, No leg swelling, No painful breathing, No sweating, No tightness International travel in last 2 weeks: No Allergies/Adverse Reactions: Iodinated Contrast Media [Iodinated Contrast Media - IV Dye] Allergy (Verified 06/11/19 09:59) diff breathing Nuzoijj-Hau-Kyv Reductase Inhibitor Adverse Reaction (Verified 06/11/19 09:59) hurt all over/achiness Home Medications: Amlodipine Besylate 10 mg [Norvasc 10 MG] 10 mg PO DAILY 02/02/17 [History] Cholecalciferol (Vitamin D3) [Vitamin D] 1,000 unit PO DAILY 02/02/17 [ History] Finasteride 5 mg [Proscar 5 MG] 5 mg PO DAILY 02/02/17 [History] Glyburide 5 mg [Micronase 5 MG] 5 mg PO QAM 02/02/17 [History] Losartan Potassium [Cozaar] 100 mg PO DAILY 02/02/17 [History] Metformin HCl [Metformin ER Gastric] 1,000 mg PO BID 02/02/17 [History] PANTOPRAZOLE 40 mg Tablet [Protonix 40MG Tablet] 40 mg PO BID 02/02/17 [ History] Paroxetine HCl 20 mg [Paxil 20 MG] 20 mg PO DAILY 02/02/17 [History] Tamsulosin HCl 0.4 mg [Flomax 0.4 MG] 0.4 mg PO DAILY 02/02/17 [History] hydroCHLOROthiazide [Hydrochlorothiazide] 50 mg PO DAILY 02/02/17 [History] Metoprolol Succinate 50 mg [Toprol Xl 50 MG] 50 mg DAILY 09/08/18 [History ] Aspirin EC 81 mg [Ecotrin 81 mg] 81 mg PO DAILY 06/09/19 [History] Atorvastatin Calcium [Lipitor] 10 mg PO DAILY 06/09/19 [History] Clonidine HCl 0.1 mg [Catapres 0.1 MG] 0.1 mg PO UD 06/09/19 [History] Glipizide 5 mg [Glucotrol 5 MG] 5 mg PO DAILY 06/09/19 [History] Hx Tetanus, Diphtheria Vaccination/Date Given: No Hx Influenza Vaccination/Date Given: Yes Hx Pneumococcal Vaccination/Date Given: Yes - Review of Systems Constitutional: No Fever, No Chills Eyes: No Symptoms Ears, Nose, & Throat: No Symptoms Respiratory: No Cough, No Dyspnea Cardiac: No Chest Pain, No Edema, No Syncope Abdominal/Gastrointestinal: No Abdominal Pain, No Nausea, No Vomiting, No Diarrhea Genitourinary Symptoms: No Dysuria Musculoskeletal: No Back Pain, No Neck Pain Skin: No Rash Neurological: No Dizziness, No Focal Weakness, No Sensory Changes Psychological: No Symptoms Endocrine: No Symptoms All Other Systems: Reviewed and Negative - Past Medical History Pertinent Past Medical History: Yes Neurological History: No Pertinent History ENT History: No Pertinent History Cardiac History: Coronary Artery Disease, High Cholesterol, Hypertension, Myocardial Infarction ([place]) Respiratory History: COPD Endocrine Medical History: Diabetes Type II Musculoskeletal History: Arthritis GI Medical History: GERD, Hernia, Other History: No Pertinent History Psycho-Social History: Anxiety Male Reproductive Disorders: Prostate Cancer Other Medical History: hiatal hernia and umbilical hernia - Past Surgical History Past Surgical History: Yes Neuro Surgical History: No Pertinent History Cardiac: Cardiac Catheterization Respiratory: No Pertinent History Gastrointestinal: No Pertinent History Genitourinary: No Pertinent History Musculoskeletal: No Pertinent History, Orthopedic Surgery Male Surgical History: No Pertinent History Other Surgical History: right handtendon, back and nose cyst removed, right knee surg, nose surg skin cancer, prostate bx with radiation beading - Social History Smoking Status: Former smoker Exposure to second hand smoke: No Drug Use: none Patient Lives Alone: No - Nursing Vital Signs Nursing Vital Signs: Initial Vital Signs Temperature 96.3 F 06/11/19 09:49 Pulse Rate 66 06/11/19 09:49 Respiratory Rate 12 06/11/19 09:49 Blood Pressure 129/81 06/11/19 09:49 O2 Sat by Pulse Oximetry 96 06/11/19 09:49 Pain Scale Pain Intensity 0 - Physical Exam General Appearance: no apparent distress, alert Eye Exam: PERRL/EOMI Ears, Nose, Throat Exam: hearing grossly normal Neck Exam: normal inspection, supple Respiratory Exam: wheezing, No accessory muscle use Cardiovascular/Chest Exam: normal heart sounds, regular rate/rhythm Abdominal/Gastrointestinal Exam: soft, No tenderness, No distention, No mass Extremity Exam: non-tender, normal range of motion, normal inspection, no calf tenderness, no pedal edema Neurologic Exam: alert, oriented x 3, cooperative, piping drafter II-XII nml as tested, sensation nml, No motor deficits Skin Exam: normal color, warm, No dry SpO2 Interpretation: normal SpO2: 96 O2 Delivery: Room Air - Course Nursing assessment & vital signs reviewed: Yes EKG Interpreted by Me: RATE, NORMAL AXIS, NORMAL INTERVALS - Radiology Exams Chest X-ray Interpretation: Teleradiologist Report, Negative Ordered Tests: Active Orders 24 hr Category Date Time Status EKG-ER Only STAT Care 06/11/19 10:04 Active IV Insertion STAT Care 06/11/19 10:04 Active Pulse Oximetry (ED) STAT Care 06/11/19 10:04 Active CHEST 1 VIEW (PORTABLE) Stat Exams 06/11/19 10:05 Completed BLOOD CULTURE Stat Lab 06/11/19 10:25 Received CBC W DIFF Stat Lab 06/11/19 10:25 Completed CMP Stat Lab 06/11/19 10:25 Completed Lactic Acid Stat Lab 06/11/19 10:04 Completed MAGNESIUM Stat Lab 06/11/19 10:25 Completed NT PRO BNP Stat Lab 06/11/19 10:25 Completed TROPONIN Q3H Lab 06/11/19 10:25 Completed TROPONIN Q3H Lab 06/11/19 13:15 Ordered TROPONIN Q3H Lab 06/11/19 16:15 Ordered TROPONIN Q3H Lab 06/11/19 19:15 Ordered TROPONIN Q3H Lab 06/11/19 22:15 Ordered UA W/RFX UR CULTURE Stat Lab 06/11/19 10:05 Uncollected Peak Expiratory Flow Rate ONCE RT 06/11/19 10:22 Active Respiratory Therapy Assessment DAILY RT 06/11/19 10:19 Active Transfer Order Routine Transfer 06/11/19 Ordered Medication Summary Generic Name Dose Route Start Last Admin Trade Name Freq PRN Reason Stop Dose Admin Sodium Chloride 1,000 mls @ 999 mls/hr 06/11/19 10:58 06/11/19 11:09 Sodium Chloride 0.9% 1000 Ml IV 06/11/19 11:58 999 mls/hr .Q1H1M STA Administration Magnesium Sulfate/Dextrose 100 mls @ 100 mls/hr 06/11/19 11:15 06/11/19 11:09 Magnesium 1 Gm / 100 Ml D5w IV 06/11/19 13:14 100 mls/hr Q1H MICHAELA Administration Discontinued Medications Generic Name Dose Route Start Last Admin Trade Name Freq PRN Reason Stop Dose Admin Albuterol Sulfate 2.5 mg 06/11/19 10:04 06/11/19 10:27 Proventil 2.5 Mg/3 Ml Neb IH 06/11/19 10:05 2.5 mg STAT ONE Administration Albuterol Sulfate Confirm 06/11/19 10:14 Proventil 2.5 Mg/3 Ml Neb Administered 06/11/19 10:15 Dose 2.5 mg IH .STK-MED ONE Sodium Chloride Confirm 06/11/19 11:05 Sodium Chloride 0.9% 1000 Ml Administered 06/11/19 11:06 Dose 1,000 mls @ ud .ROUTE .STK-MED ONE Magnesium Sulfate 2 gm 06/11/19 10:57 06/11/19 11:13 Magnesium Sulfate 1 Gm/2 Ml Vial IV 06/11/19 10:58 Not Given ONCE STA Methylprednisolone Sodium Succinate 125 mg 06/11/19 10:04 06/11/19 10:11 Solu-Medrol 125 Mg IV 06/11/19 10:05 125 mg STAT ONE Administration Methylprednisolone Sodium Succinate Confirm 06/11/19 10:10 Solu-Medrol 125 Mg Administered 06/11/19 10:11 Dose 125 mg .ROUTE .STK-MED ONE Lab/Rad Data: Laboratory Result Diagrams 06/11/19 10:25 06/11/19 10:25 Laboratory Results 06/11/19 06/11/19 06/11/19 Range/Units 10:25 10:25 10:25 WBC 4.7 (4.0-10.5) K/mm3 RBC 5.25 (4.1-5.6) M/mm3 Hgb 15.1 (12.5-18.0) gm/dl Hct 43.9 (42-50) % MCV 83.6 (78-100) fl MCH 28.8 (26-32) pg MCHC 34.4 (32-36) g/dl RDW 14.0 (11.5-14.0) % Plt Count 247 (150-450) K/mm3 MPV 10.0 (7.5-11.0) fl Gran % 65.6 (36.0-66.0) % Eos # (Auto) 0.08 (0-0.5) Absolute Lymphs (auto) 1.09 (1.0-4.6) Absolute Monos (auto) 0.43 (0.0-1.3) Lymphocytes % 23.3 L (24.0-44.0) % Monocytes % 9.2 (0.0-12.0) % Eosinophils % 1.7 (0.00-5.0) % Basophils % 0.2 (0.0-0.4) % Absolute Granulocytes 3.06 (1.4-6.9) Basophils # 0.01 (0-0.4) Sodium 131 L (137-145) mmol/L Potassium 4.3 (3.5-5.1) mmol/L Chloride 98 (98-107) mmol/L Carbon Dioxide 25 (22-30) mmol/L Anion Gap 12.5 (5-15) MEQ/L BUN 19 (9-20) mg/dL Creatinine 0.82 (0.66-1.25) mg/dL Estimated GFR > 60.0 ML/MIN Glucose 199 H (74-106) mg/dL Lactic Acid (0.4-2.0) Calcium 8.9 (8.4-10.2) mg/dL Magnesium 1.5 L (1.6-2.3) mg/dL Total Bilirubin 0.80 (0.2-1.3) mg/dL AST 30 (17-59) U/L ALT 28 (0-50) U/L Alkaline Phosphatase 80 (38-126) U/L Troponin I < 0.012 (0.000-0.034) ng/mL NT-Pro-B Natriuret Pep 256 (0-900) pg/mL Serum Total Protein 7.7 (6.3-8.2) g/dL Albumin 4.1 (3.5-5.0) g/dL 06/11/19 Range/Units 10:04 WBC (4.0-10.5) K/mm3 RBC (4.1-5.6) M/mm3 Hgb (12.5-18.0) gm/dl Hct (42-50) % MCV (78-100) fl MCH (26-32) pg MCHC (32-36) g/dl RDW (11.5-14.0) % Plt Count (150-450) K/mm3 MPV (7.5-11.0) fl Gran % (36.0-66.0) % Eos # (Auto) (0-0.5) Absolute Lymphs (auto) (1.0-4.6) Absolute Monos (auto) (0.0-1.3) Lymphocytes % (24.0-44.0) % Monocytes % (0.0-12.0) % Eosinophils % (0.00-5.0) % Basophils % (0.0-0.4) % Absolute Granulocytes (1.4-6.9) Basophils # (0-0.4) Sodium (137-145) mmol/L Potassium (3.5-5.1) mmol/L Chloride (98-107) mmol/L Carbon Dioxide (22-30) mmol/L Anion Gap (5-15) MEQ/L BUN (9-20) mg/dL Creatinine (0.66-1.25) mg/dL Estimated GFR ML/MIN Glucose (74-106) mg/dL Lactic Acid 2.1 H (0.4-2.0) Calcium (8.4-10.2) mg/dL Magnesium (1.6-2.3) mg/dL Total Bilirubin (0.2-1.3) mg/dL AST (17-59) U/L ALT (0-50) U/L Alkaline Phosphatase (38-126) U/L Troponin I (0.000-0.034) ng/mL NT-Pro-B Natriuret Pep (0-900) pg/mL Serum Total Protein (6.3-8.2) g/dL Albumin (3.5-5.0) g/dL - Progress Progress: improved Air Movement: fair, good Progress Note: 06/11/19 11:31 Patient reassessed. He feels much better after the nebulizer treatment. Wheezing improving. Case discussed with Dr. Garcia who accepts admission to observation. Patient will receive Solu-Medrol and albuterol nebulizer scheduled as per Dr. Garcia request. Blood Culture(s) Obtained: Yes Antibiotics given: No Discussed with : Susana Will see patient in: hospital (observation) Counseled pt/family regarding: lab results, diagnosis, rad results - Departure Departure Disposition: Home, Extended Care Facility Clinical Impression: Influenza A, Wheezing, Hyponatremia, Hyperglycemia, Hypomagnesemia, Shortness of breath Condition: Good Critical Care Time: No
[2019-06-11 10:27] LABS: Absolute Neutrophil Ct (ANC) 3.06 (1.4-6.9); BASOPHIL % 0.2 % (0.0-0.4); Basophil (Absolute #) 0.01 (0-0.4); Eosinophil % 1.7 % (0.00-5.0); Eosinophil (Absolute #) 0.08 (0-0.5); Hematocrit 43.9 % (42-50); Hemoglobin 15.1 gm/dl (12.5-18.0); Lymphocyte (Absolute #) 1.09 (1.0-4.6); Lymphocytes % 23.3 % (24.0-44.0); Mean Cell Volume 83.6 fl (78-100); Mean Corpuscular Hemoglobin 28.8 pg (26-32); Mean Corpuscular Hgb Concent. 34.4 g/dl (32-36); Monocyte (Absolute #) 0.43 (0.0-1.3); Monocytes % 9.2 % (0.0-12.0); Neutrophil % 65.6 % (36.0-66.0); Platelet Count 247 K/mm3 (150-450); Red Blood Count 5.25 M/mm3 (4.1-5.6); White Blood Count 4.7 K/mm3 (4.0-10.5)
--- NOTE | 2019-06-11 10:34 | XRAY ---
Indication: Congestion and short of breath. Pneumonia. Comparison: June 09, 2019. Portable chest again demonstrates normal heart and lungs with chronic left hemidiaphragm elevation. No new/acute findings.
[2019-06-11 10:47] LABS: ALBUMIN 4.1 g/dL (3.5-5.0); ALKALINE PHOSPHATASE 80 U/L (38-126); ANION GAP 12.5 MEQ/L (5-15); BLOOD UREA NITROGEN 19 mg/dL (9-20); CHLORIDE 98 mmol/L (98-107); Calcium 8.9 mg/dL (8.4-10.2); Carbon Dioxide 25 mmol/L (22-30); Creatinine 1 0.82 mg/dL (0.66-1.25); Glucose 199 mg/dL (74-106); MAGNESIUM 1.5 mg/dL (1.6-2.3); NT PRO BNP 256 pg/mL (0-900); Potassium 4.3 mmol/L (3.5-5.1); SGOT/AST 30 U/L (17-59); SGPT/ALT 28 U/L (0-50); SODIUM 131 mmol/L (137-145); Total Protein 7.7 g/dL (6.3-8.2)
[2019-06-11] MEDS ORDERED: Magnesium Sulfate 1 GM/2 ML VIAL IV STA (10:57)
[2019-06-11] MEDS ORDERED: Sodium Chloride 0.9% 1000 ML 1,000 ML IV STA (10:58)
[2019-06-11] MEDS ORDERED: Sodium Chloride 0.9% 1000 ML 1,000 ML ONE (11:05)
[2019-06-11] MEDS: Magnesium 1 Gm / 100 Ml D5W*** 100 ML IV SCH ×2 (11:09→12:19)
[2019-06-11] MEDS ORDERED: solu-MEDROL 125 MG IV SCH (12:00)
[2019-06-11] MEDS: Sodium Chloride 0.9% 1000 ML 1,000 ML IV SCH (12:16)
[2019-06-11 13:36] LABS: Appearance CLEAR (CLEAR); Bilirubin NEGATIVE (NEGATIVE); Blood NEGATIVE Ery/ul (0-5); Glucose NEGATIVE (NEGATIVE); Ketones NEGATIVE (NEGATIVE); Leukocyte Esterase NEGATIVE (NEGATIVE); Nitrite NEGATIVE (NEGATIVE); Protein,Urine Dip NEGATIVE (Negative); Specific Gravity 1.005 (1.005-1.025); Urobilinogen NEGATIVE mg/dL (0-1)
[2019-06-11] MEDS: PROVENTIL 2.5 MG/3 ML NEB IH SCH ×3 (14:28→22:33)
[2019-06-11] MEDS ORDERED: IBUPROFEN 800 MG PO PRN (15:40)
[2019-06-11] MEDS ORDERED: NON-FORMULARY ITEM (Hydrocodone Bit/Acetaminophen [Hydrocodone-Acetaminophen Soln] 10 ML) PO SCH (15:45)
[2019-06-11] MEDS ORDERED: HYDROCODONE-ACETAMIN 2.5-108/5 ML SOLUTION PO PRN (15:52)
--- NOTE | 2019-06-11 16:01 | PCM.HP ---
History of Present Illness - Chief Complaint Chief Complaint: influenza, sob History of Present Illness: is a 74 year old male patient of Dr Kyle, he has been sick for the last week, was initially started on augmentin but stopped due to GI side effects. was seen in ER 2 days ago and swab + for influenza A, he is on tamiflu but continues to cough and feel short of breath. has had intermittent chills and subjective fever, no vomiting, decreased po intake but tolerating ok. - Review of Systems Constitutional: Fever, Chills Eyes: No Symptoms Ears, Nose, & Throat: No Symptoms Respiratory: Cough, Short Of Breath, Wheezing Cardiac: No Chest Pain, No Edema, No Syncope Abdominal/Gastrointestinal: No Abdominal Pain, No Nausea, No Vomiting, No Diarrhea Genitourinary Symptoms: No Dysuria Skin: No Rash All Other Systems: Reviewed and Negative Medications & Allergies Home Medications: Home Medication List Amlodipine Besylate 10 mg [Norvasc 10 MG] 10 mg PO DAILY 02/02/17 [History Confirmed 06/11/19] Cholecalciferol (Vitamin D3) [Vitamin D] 1,000 unit PO DAILY 02/02/17 [ History Confirmed 06/11/19] Finasteride 5 mg [Proscar 5 MG] 5 mg PO DAILY 02/02/17 [History Confirmed 06/11/19] Losartan Potassium [Cozaar] 100 mg PO DAILY 02/02/17 [History Confirmed 06/11/19 ] Metformin HCl [Metformin ER Gastric] 1,000 mg PO BID 02/02/17 [History Confirmed 06/11/19] PANTOPRAZOLE 40 mg Tablet [Protonix 40MG Tablet] 40 mg PO BID 02/02/17 [ History Confirmed 06/11/19] Paroxetine HCl 20 mg [Paxil 20 MG] 10 mg PO DAILY 02/02/17 [History Confirmed 06/11/19] Tamsulosin HCl 0.4 mg [Flomax 0.4 MG] 0.4 mg PO DAILY 02/02/17 [History Confirmed 06/11/19] hydroCHLOROthiazide [Hydrochlorothiazide] 50 mg PO DAILY 02/02/17 [History Confirmed 06/11/19] Metoprolol Succinate 50 mg [Toprol Xl 50 MG] 50 mg DAILY 09/08/18 [ History Confirmed 06/11/19] Glipizide 5 mg [Glucotrol 5 MG] 5 mg PO DAILY 06/09/19 [History Confirmed 06/11/19] Hydrocodone Bit/Acetaminophen [Hydrocodone-Acetaminophen Soln] 10 ml PO Q6H # 120 ml 06/09/19 [Rx Confirmed 06/11/19] Oseltamivir 75 mg [Tamiflu 75MG Capsule] 75 mg PO BID #10 cap 06/09/19 [ Rx Confirmed 06/11/19] Ibuprofen [IBUPROFEN 400 MG TABLET] 800 mg PO Q8HPRN PRN 06/11/19 [History Confirmed 06/11/19] Allergies/Adverse Reactions: Allergies Allergy/AdvReac Type Severity Reaction Status Date / Time Iodinated Contrast Media Allergy diff Verified 06/11/19 09:59 [Iodinated Contrast Media - breathing IV Dye] Hxxidgq-Wnz-Ell Reductase AdvReac hurt all Verified 06/11/19 09:59 Inhibitor over/achiness - Past Medical History Past Medical History: Yes Neurological History: No Pertinent History ENT History: No Pertinent History Cardiac History: Coronary Artery Disease, High Cholesterol, Hypertension, Myocardial Infarction ([place]) Respiratory History: COPD Endocrine Medical History: Diabetes Type II Musculoskelatal History: Arthritis GI Medical History: GERD, Hernia, Other History: No Pertinent History Pyscho-Social History: Anxiety Male Reproductive Disorders: Prostate Cancer Comment: hiatal hernia and umbilical hernia - Past Surgical History Past Surgical History: Yes Neuro Surgical History: No Pertinent History Cardiac History: Cardiac Catheterization Respiratory Surgery: No Pertinent History GI Surgical History: No Pertinent History Genitourinary Surgical Hx: No Pertinent History Musculskeletal Surgical Hx: No Pertinent History, Orthopedic Surgery Male Surgical History: No Pertinent History Other Surgical History: right handtendon, back and nose cyst removed, right knee surg, nose surg skin cancer, prostate bx with radiation beading - Social History Smoking Status: Former smoker Exposure to second hand smoke: No Alcohol: None Drug Use: none - Physical Exam Vital Signs: Vital Signs - 24 hr Temp Pulse Resp BP Pulse Ox 06/11/19 14:39 97 06/11/19 13:00 98.1 F 62 18 136/65 97 06/11/19 12:13 97.5 F 60 16 117/69 96 06/11/19 12:00 98.1 F 62 18 136/65 97 06/11/19 11:39 98.1 F 62 18 136/65 97 06/11/19 11:32 96 06/11/19 10:47 60 16 117/69 95 06/11/19 10:23 62 16 94 L 06/11/19 10:09 96 06/11/19 09:49 96.3 F 66 12 129/81 99 General Appearance: no apparent distress Neurologic Exam: alert, oriented x 3, cooperative Respiratory Exam: wheezing Cardiovascular Exam: regular rate/rhythm, normal heart sounds, normal peripheral pulses Gastrointestinal/Abdomen Exam: soft, normal bowel sounds, No tenderness, No mass Extremity Exam: normal inspection, normal range of motion, pelvis stable Skin Exam: normal color, warm, dry, No rash Results - Labs Lab/Micro Results: Lab Results-Last 24 Hours 06/11/19 06/11/19 06/11/19 Range/Units 10:04 10:25 10:25 WBC 4.7 (4.0-10.5) K/mm3 RBC 5.25 (4.1-5.6) M/mm3 Hgb 15.1 (12.5-18.0) gm/dl Hct 43.9 (42-50) % MCV 83.6 (78-100) fl MCH 28.8 (26-32) pg MCHC 34.4 (32-36) g/dl RDW 14.0 (11.5-14.0) % Plt Count 247 (150-450) K/mm3 MPV 10.0 (7.5-11.0) fl Gran % 65.6 (36.0-66.0) % Eos # (Auto) 0.08 (0-0.5) Absolute Lymphs (auto) 1.09 (1.0-4.6) Absolute Monos (auto) 0.43 (0.0-1.3) Lymphocytes % 23.3 L (24.0-44.0) % Monocytes % 9.2 (0.0-12.0) % Eosinophils % 1.7 (0.00-5.0) % Basophils % 0.2 (0.0-0.4) % Absolute Granulocytes 3.06 (1.4-6.9) Basophils # 0.01 (0-0.4) Sodium 131 L (137-145) mmol/L Potassium 4.3 (3.5-5.1) mmol/L Chloride 98 (98-107) mmol/L Carbon Dioxide 25 (22-30) mmol/L Anion Gap 12.5 (5-15) MEQ/L BUN 19 (9-20) mg/dL Creatinine 0.82 (0.66-1.25) mg/dL Estimated GFR > 60.0 ML/MIN Glucose 199 H (74-106) mg/dL Lactic Acid 2.1 H (0.4-2.0) Calcium 8.9 (8.4-10.2) mg/dL Magnesium 1.5 L (1.6-2.3) mg/dL Total Bilirubin 0.80 (0.2-1.3) mg/dL AST 30 (17-59) U/L ALT 28 (0-50) U/L Alkaline Phosphatase 80 (38-126) U/L Troponin I (0.000-0.034) ng/mL NT-Pro-B Natriuret Pep 256 (0-900) pg/mL Serum Total Protein 7.7 (6.3-8.2) g/dL Albumin 4.1 (3.5-5.0) g/dL Urine Color (YELLOW) Urine Appearance (CLEAR) Urine pH (5-6) Ur Specific [place] (1.005-1.025) Urine Protein (Negative) Urine Ketones (NEGATIVE) Urine Blood (0-5) Mikhail/ul Urine Nitrite (NEGATIVE) Urine Bilirubin (NEGATIVE) Urine Urobilinogen (0-1) mg/dL Ur Leukocyte Esterase (NEGATIVE) Urine WBC (Auto) (0-5) /HPF Urine RBC (Auto) (0-2) /HPF U Epithel Cells (Auto) (FEW) /HPF Urine Bacteria (Auto) (NEGATIVE) /HPF Urine Culture Reflexed (NO) Urine Glucose (NEGATIVE) mg/dL 06/11/19 06/11/19 06/11/19 Range/Units 10:25 12:31 13:00 WBC (4.0-10.5) K/mm3 RBC (4.1-5.6) M/mm3 Hgb (12.5-18.0) gm/dl Hct (42-50) % MCV (78-100) fl MCH (26-32) pg MCHC (32-36) g/dl RDW (11.5-14.0) % Plt Count (150-450) K/mm3 MPV (7.5-11.0) fl Gran % (36.0-66.0) % Eos # (Auto) (0-0.5) Absolute Lymphs (auto) (1.0-4.6) Absolute Monos (auto) (0.0-1.3) Lymphocytes % (24.0-44.0) % Monocytes % (0.0-12.0) % Eosinophils % (0.00-5.0) % Basophils % (0.0-0.4) % Absolute Granulocytes (1.4-6.9) Basophils # (0-0.4) Sodium (137-145) mmol/L Potassium (3.5-5.1) mmol/L Chloride (98-107) mmol/L Carbon Dioxide (22-30) mmol/L Anion Gap (5-15) MEQ/L BUN (9-20) mg/dL Creatinine (0.66-1.25) mg/dL Estimated GFR ML/MIN Glucose (74-106) mg/dL Lactic Acid 2.5 H (0.4-2.0) Calcium (8.4-10.2) mg/dL Magnesium (1.6-2.3) mg/dL Total Bilirubin (0.2-1.3) mg/dL AST (17-59) U/L ALT (0-50) U/L Alkaline Phosphatase (38-126) U/L Troponin I < 0.012 (0.000-0.034) ng/mL NT-Pro-B Natriuret Pep (0-900) pg/mL Serum Total Protein (6.3-8.2) g/dL Albumin (3.5-5.0) g/dL Urine Color STRAW (YELLOW) Urine Appearance CLEAR (CLEAR) Urine pH 7.0 (5-6) Ur Specific [place] 1.005 (1.005-1.025) Urine Protein NEGATIVE (Negative) Urine Ketones NEGATIVE (NEGATIVE) Urine Blood NEGATIVE (0-5) Mikhail/ul Urine Nitrite NEGATIVE (NEGATIVE) Urine Bilirubin NEGATIVE (NEGATIVE) Urine Urobilinogen NEGATIVE (0-1) mg/dL Ur Leukocyte Esterase NEGATIVE (NEGATIVE) Urine WBC (Auto) NONE (0-5) /HPF Urine RBC (Auto) NONE (0-2) /HPF U Epithel Cells (Auto) NONE (FEW) /HPF Urine Bacteria (Auto) NONE (NEGATIVE) /HPF Urine Culture Reflexed NO (NO) Urine Glucose NEGATIVE (NEGATIVE) mg/dL - Radiology Impressions Radiology Exams & Impressions: Radiology Procedures Category Date Time Status CHEST 1 VIEW (PORTABLE) Stat Exams 06/11/19 10:05 Completed - Other Procedures and Tests Respiratory Therapy 06/11/19 10:19 Respiratory Therapy Assessment DAILY 06/11/19 10:22 Peak Expiratory Flow Rate ONCE 06/11/19 11:51 Oxygen Nasal Cannula 2 lpm Assessment/Plan (1) Influenza A Current Visit: Yes Status: Acute Assessment & Plan: continue tamiflu and supportive measures at this time Code(s): J10.1 - FLU DUE TO OTH IDENT INFLUENZA VIRUS W OTH RESP MANIFEST (2) Acute exacerbation of chronic obstructive airways disease Current Visit: Yes Status: Acute Assessment & Plan: contine IV solu medrol, nebs and will add levaquin due to sputum change with copd exacerbation. Code(s): J44.1 - CHRONIC OBSTRUCTIVE PULMONARY DISEASE W (ACUTE) EXACERBATION
[2019-06-11] MEDS: Cozaar 50 MG PO SCH (16:54)
[2019-06-11] MEDS: Levofloxacin 500MG/100ML D5W 500 MG/100 ML BAG IV SCH (16:54)
[2019-06-11] MEDS: Flomax 0.4 MG PO SCH (16:54)
[2019-06-11] MEDS: NORVASC 5 MG PO SCH (16:55)
[2019-06-11] MEDS: Paxil 20 MG PO SCH (16:55)
[2019-06-11] MEDS: Proscar 5 MG PO SCH (16:55)
[2019-06-11] MEDS: Toprol Xl 50 MG PO SCH (16:55)
[2019-06-11] MEDS: solu-MEDROL 125 MG IV SCH ×2 (17:57→23:20)
[2019-06-11] MEDS: NovoLOG Insulin SQ PRN ×2 (18:02→21:48)
[2019-06-11] MEDS: Ambien 5 MG Tablet PO PRN (21:48)
[2019-06-11] MEDS: Protonix 40MG Tablet PO SCH (21:48)
[2019-06-11] MEDS: Tamiflu 75MG Capsule PO SCH (21:48)
[2019-06-12] MEDS: PROVENTIL 2.5 MG/3 ML NEB IH SCH ×5 (02:52→19:20)
[2019-06-12 05:42] LABS: Hematocrit 40.9 % (42-50); Hemoglobin 13.9 gm/dl (12.5-18.0); Mean Cell Volume 83.3 fl (78-100); Mean Corpuscular Hemoglobin 28.3 pg (26-32); Mean Platelet Volume 9.4 fl (7.5-11.0); Platelet Count 227 K/mm3 (150-450); Red Blood Count 4.91 M/mm3 (4.1-5.6); White Blood Count 6.1 K/mm3 (4.0-10.5)
[2019-06-12 06:09] LABS: ALBUMIN 3.9 g/dL (3.5-5.0); ALKALINE PHOSPHATASE 76 U/L (38-126); ANION GAP 13.4 MEQ/L (5-15); BLOOD UREA NITROGEN 16 mg/dL (9-20); CHLORIDE 99 mmol/L (98-107); Calcium 8.9 mg/dL (8.4-10.2); Carbon Dioxide 26 mmol/L (22-30); Creatinine 1 0.71 mg/dL (0.66-1.25); Glucose 217 mg/dL (74-106); Potassium 4.3 mmol/L (3.5-5.1); SGOT/AST 21 U/L (17-59); SGPT/ALT 26 U/L (0-50); SODIUM 134 mmol/L (137-145); Total Protein 7.1 g/dL (6.3-8.2)
[2019-06-12] MEDS: solu-MEDROL 125 MG IV SCH ×4 (06:25→23:40)
--- NOTE | 2019-06-12 08:22 | PCM.NOTE ---
Date and Time: 06/12/19819 Subjective Assessment: doing better today, no new complaints. still has cough but no longer productive , gwyn po intake Objective Exam General Appearance: no apparent distress Neurologic Exam: alert, oriented x 3 Respiratory Exam: wheezing Cardiovascular Exam: regular rate/rhythm, normal heart sounds Gastrointestinal/Abdomen Exam: soft, No tenderness, No mass Extremity Exam: normal inspection, normal range of motion OBJECTIVE DATA Vital Signs: Vital Signs - 24 hr Temp Pulse Resp BP Pulse Ox 06/12/19 07:55 97.8 F 78 18 168/88 96 06/12/19 07:32 78 18 96 06/12/19 04:00 97.7 F 72 19 156/94 98 06/12/19 02:56 81 22 98 06/12/19 00:00 97.6 F 86 18 125/67 96 06/11/19 22:37 75 20 95 06/11/19 20:00 97.8 F 80 17 122/69 95 06/11/19 18:41 84 20 94 L 06/11/19 16:00 97.8 F 75 18 144/71 92 L 06/11/19 14:39 97 06/11/19 13:00 98.1 F 62 18 136/65 97 06/11/19 12:13 97.5 F 60 16 117/69 96 06/11/19 12:00 98.1 F 62 18 136/65 97 06/11/19 11:39 98.1 F 62 18 136/65 97 06/11/19 11:32 96 06/11/19 10:47 60 16 117/69 95 06/11/19 10:23 62 16 94 L 06/11/19 10:09 96 06/11/19 09:49 96.3 F 66 12 129/81 99 Pain Assessment - Last Documented Pain Intensity 0 Pain Scale Used 0-10 Pain Scale Intake and Output: Intake & Output 06/09/19 06/10/19 06/11/19 06/12/19 11:59 11:59 11:59 11:59 Intake Total 3081 Output Total 3000 Balance 81 Weight 105.233 kg 102 kg Lab Results: Accuchecks Date 06/11/19 Time 16:30 Accucheck Value: 259 Accucheck Value: 206 Lab Results-Last 24 Hours 02/12/20 02/12/20 02/12/20 Range/Units 10:04 10:04 10:25 WBC 4.7 (4.0-10.5) K/mm3 RBC 5.25 (4.1-5.6) M/mm3 Hgb 15.1 (12.5-18.0) gm/dl Hct 43.9 (42-50) % MCV 83.6 (78-100) fl MCH 28.8 (26-32) pg MCHC 34.4 (32-36) g/dl RDW 14.0 (11.5-14.0) % Plt Count 247 (150-450) K/mm3 MPV 10.0 (7.5-11.0) fl Gran % 65.6 (36.0-66.0) % Eos # (Auto) 0.08 (0-0.5) Absolute Lymphs (auto) 1.09 (1.0-4.6) Absolute Monos (auto) 0.43 (0.0-1.3) Lymphocytes % 23.3 L (24.0-44.0) % Monocytes % 9.2 (0.0-12.0) % Eosinophils % 1.7 (0.00-5.0) % Basophils % 0.2 (0.0-0.4) % Absolute Granulocytes 3.06 (1.4-6.9) Basophils # 0.01 (0-0.4) Sodium (137-145) mmol/L Potassium (3.5-5.1) mmol/L Chloride (98-107) mmol/L Carbon Dioxide (22-30) mmol/L Anion Gap (5-15) MEQ/L BUN (9-20) mg/dL Creatinine (0.66-1.25) mg/dL Estimated GFR ML/MIN Glucose (74-106) mg/dL Hemoglobin A1c 6.37 H (4.5-6.0) % Lactic Acid 2.1 H (0.4-2.0) Calcium (8.4-10.2) mg/dL Magnesium (1.6-2.3) mg/dL Total Bilirubin (0.2-1.3) mg/dL AST (17-59) U/L ALT (0-50) U/L Alkaline Phosphatase (38-126) U/L Troponin I (0.000-0.034) ng/mL NT-Pro-B Natriuret Pep (0-900) pg/mL Serum Total Protein (6.3-8.2) g/dL Albumin (3.5-5.0) g/dL Urine Color (YELLOW) Urine Appearance (CLEAR) Urine pH (5-6) Ur Specific [place] (1.005-1.025) Urine Protein (Negative) Urine Ketones (NEGATIVE) Urine Blood (0-5) Mikhail/ul Urine Nitrite (NEGATIVE) Urine Bilirubin (NEGATIVE) Urine Urobilinogen (0-1) mg/dL Ur Leukocyte Esterase (NEGATIVE) Urine WBC (Auto) (0-5) /HPF Urine RBC (Auto) (0-2) /HPF U Epithel Cells (Auto) (FEW) /HPF Urine Bacteria (Auto) (NEGATIVE) /HPF Urine Culture Reflexed (NO) Urine Glucose (NEGATIVE) mg/dL 06/11/19 06/11/19 06/11/19 Range/Units 10:25 10:25 12:31 WBC (4.0-10.5) K/mm3 RBC (4.1-5.6) M/mm3 Hgb (12.5-18.0) gm/dl Hct (42-50) % MCV (78-100) fl MCH (26-32) pg MCHC (32-36) g/dl RDW (11.5-14.0) % Plt Count (150-450) K/mm3 MPV (7.5-11.0) fl Gran % (36.0-66.0) % Eos # (Auto) (0-0.5) Absolute Lymphs (auto) (1.0-4.6) Absolute Monos (auto) (0.0-1.3) Lymphocytes % (24.0-44.0) % Monocytes % (0.0-12.0) % Eosinophils % (0.00-5.0) % Basophils % (0.0-0.4) % Absolute Granulocytes (1.4-6.9) Basophils # (0-0.4) Sodium 131 L (137-145) mmol/L Potassium 4.3 (3.5-5.1) mmol/L Chloride 98 (98-107) mmol/L Carbon Dioxide 25 (22-30) mmol/L Anion Gap 12.5 (5-15) MEQ/L BUN 19 (9-20) mg/dL Creatinine 0.82 (0.66-1.25) mg/dL Estimated GFR > 60.0 ML/MIN Glucose 199 H (74-106) mg/dL Hemoglobin A1c (4.5-6.0) % Lactic Acid 2.5 H (0.4-2.0) Calcium 8.9 (8.4-10.2) mg/dL Magnesium 1.5 L (1.6-2.3) mg/dL Total Bilirubin 0.80 (0.2-1.3) mg/dL AST 30 (17-59) U/L ALT 28 (0-50) U/L Alkaline Phosphatase 80 (38-126) U/L Troponin I < 0.012 (0.000-0.034) ng/mL NT-Pro-B Natriuret Pep 256 (0-900) pg/mL Serum Total Protein 7.7 (6.3-8.2) g/dL Albumin 4.1 (3.5-5.0) g/dL Urine Color (YELLOW) Urine Appearance (CLEAR) Urine pH (5-6) Ur Specific [place] (1.005-1.025) Urine Protein (Negative) Urine Ketones (NEGATIVE) Urine Blood (0-5) Mikhail/ul Urine Nitrite (NEGATIVE) Urine Bilirubin (NEGATIVE) Urine Urobilinogen (0-1) mg/dL Ur Leukocyte Esterase (NEGATIVE) Urine WBC (Auto) (0-5) /HPF Urine RBC (Auto) (0-2) /HPF U Epithel Cells (Auto) (FEW) /HPF Urine Bacteria (Auto) (NEGATIVE) /HPF Urine Culture Reflexed (NO) Urine Glucose (NEGATIVE) mg/dL 06/11/19 06/11/19 06/11/19 Range/Units 13:00 13:38 16:26 WBC (4.0-10.5) K/mm3 RBC (4.1-5.6) M/mm3 Hgb (12.5-18.0) gm/dl Hct (42-50) % MCV (78-100) fl MCH (26-32) pg MCHC (32-36) g/dl RDW (11.5-14.0) % Plt Count (150-450) K/mm3 MPV (7.5-11.0) fl Gran % (36.0-66.0) % Eos # (Auto) (0-0.5) Absolute Lymphs (auto) (1.0-4.6) Absolute Monos (auto) (0.0-1.3) Lymphocytes % (24.0-44.0) % Monocytes % (0.0-12.0) % Eosinophils % (0.00-5.0) % Basophils % (0.0-0.4) % Absolute Granulocytes (1.4-6.9) Basophils # (0-0.4) Sodium (137-145) mmol/L Potassium (3.5-5.1) mmol/L Chloride (98-107) mmol/L Carbon Dioxide (22-30) mmol/L Anion Gap (5-15) MEQ/L BUN (9-20) mg/dL Creatinine (0.66-1.25) mg/dL Estimated GFR ML/MIN Glucose (74-106) mg/dL Hemoglobin A1c (4.5-6.0) % Lactic Acid (0.4-2.0) Calcium (8.4-10.2) mg/dL Magnesium (1.6-2.3) mg/dL Total Bilirubin (0.2-1.3) mg/dL AST (17-59) U/L ALT (0-50) U/L Alkaline Phosphatase (38-126) U/L Troponin I < 0.012 < 0.012 (0.000-0.034) ng/mL NT-Pro-B Natriuret Pep (0-900) pg/mL Serum Total Protein (6.3-8.2) g/dL Albumin (3.5-5.0) g/dL Urine Color STRAW (YELLOW) Urine Appearance CLEAR (CLEAR) Urine pH 7.0 (5-6) Ur Specific [place] 1.005 (1.005-1.025) Urine Protein NEGATIVE (Negative) Urine Ketones NEGATIVE (NEGATIVE) Urine Blood NEGATIVE (0-5) Mikhail/ul Urine Nitrite NEGATIVE (NEGATIVE) Urine Bilirubin NEGATIVE (NEGATIVE) Urine Urobilinogen NEGATIVE (0-1) mg/dL Ur Leukocyte Esterase NEGATIVE (NEGATIVE) Urine WBC (Auto) NONE (0-5) /HPF Urine RBC (Auto) NONE (0-2) /HPF U Epithel Cells (Auto) NONE (FEW) /HPF Urine Bacteria (Auto) NONE (NEGATIVE) /HPF Urine Culture Reflexed NO (NO) Urine Glucose NEGATIVE (NEGATIVE) mg/dL 06/11/19 06/11/19 06/12/19 Range/Units 19:32 22:20 05:35 WBC (4.0-10.5) K/mm3 RBC (4.1-5.6) M/mm3 Hgb (12.5-18.0) gm/dl Hct (42-50) % MCV (78-100) fl MCH (26-32) pg MCHC (32-36) g/dl RDW (11.5-14.0) % Plt Count (150-450) K/mm3 MPV (7.5-11.0) fl Gran % (36.0-66.0) % Eos # (Auto) (0-0.5) Absolute Lymphs (auto) (1.0-4.6) Absolute Monos (auto) (0.0-1.3) Lymphocytes % (24.0-44.0) % Monocytes % (0.0-12.0) % Eosinophils % (0.00-5.0) % Basophils % (0.0-0.4) % Absolute Granulocytes (1.4-6.9) Basophils # (0-0.4) Sodium (137-145) mmol/L Potassium (3.5-5.1) mmol/L Chloride (98-107) mmol/L Carbon Dioxide (22-30) mmol/L Anion Gap (5-15) MEQ/L BUN (9-20) mg/dL Creatinine (0.66-1.25) mg/dL Estimated GFR ML/MIN Glucose (74-106) mg/dL Hemoglobin A1c (4.5-6.0) % Lactic Acid 2.3 H (0.4-2.0) Calcium (8.4-10.2) mg/dL Magnesium (1.6-2.3) mg/dL Total Bilirubin (0.2-1.3) mg/dL AST (17-59) U/L ALT (0-50) U/L Alkaline Phosphatase (38-126) U/L Troponin I < 0.012 < 0.012 (0.000-0.034) ng/mL NT-Pro-B Natriuret Pep (0-900) pg/mL Serum Total Protein (6.3-8.2) g/dL Albumin (3.5-5.0) g/dL Urine Color (YELLOW) Urine Appearance (CLEAR) Urine pH (5-6) Ur Specific [place] (1.005-1.025) Urine Protein (Negative) Urine Ketones (NEGATIVE) Urine Blood (0-5) Mikhail/ul Urine Nitrite (NEGATIVE) Urine Bilirubin (NEGATIVE) Urine Urobilinogen (0-1) mg/dL Ur Leukocyte Esterase (NEGATIVE) Urine WBC (Auto) (0-5) /HPF Urine RBC (Auto) (0-2) /HPF U Epithel Cells (Auto) (FEW) /HPF Urine Bacteria (Auto) (NEGATIVE) /HPF Urine Culture Reflexed (NO) Urine Glucose (NEGATIVE) mg/dL 06/12/19 06/12/19 06/12/19 Range/Units 05:39 05:39 05:39 WBC 6.1 (4.0-10.5) K/mm3 RBC 4.91 (4.1-5.6) M/mm3 Hgb 13.9 (12.5-18.0) gm/dl Hct 40.9 L (42-50) % MCV 83.3 (78-100) fl MCH 28.3 (26-32) pg MCHC 34.0 (32-36) g/dl RDW 14.0 (11.5-14.0) % Plt Count 227 (150-450) K/mm3 MPV 9.4 (7.5-11.0) fl Gran % (36.0-66.0) % Eos # (Auto) (0-0.5) Absolute Lymphs (auto) (1.0-4.6) Absolute Monos (auto) (0.0-1.3) Lymphocytes % (24.0-44.0) % Monocytes % (0.0-12.0) % Eosinophils % (0.00-5.0) % Basophils % (0.0-0.4) % Absolute Granulocytes (1.4-6.9) Basophils # (0-0.4) Sodium 134 L (137-145) mmol/L Potassium 4.3 (3.5-5.1) mmol/L Chloride 99 (98-107) mmol/L Carbon Dioxide 26 (22-30) mmol/L Anion Gap 13.4 (5-15) MEQ/L BUN 16 (9-20) mg/dL Creatinine 0.71 (0.66-1.25) mg/dL Estimated GFR > 60.0 ML/MIN Glucose 217 H (74-106) mg/dL Hemoglobin A1c (4.5-6.0) % Lactic Acid (0.4-2.0) Calcium 8.9 (8.4-10.2) mg/dL Magnesium 1.8 (1.6-2.3) mg/dL Total Bilirubin 0.40 (0.2-1.3) mg/dL AST 21 (17-59) U/L ALT 26 (0-50) U/L Alkaline Phosphatase 76 (38-126) U/L Troponin I (0.000-0.034) ng/mL NT-Pro-B Natriuret Pep (0-900) pg/mL Serum Total Protein 7.1 (6.3-8.2) g/dL Albumin 3.9 (3.5-5.0) g/dL Urine Color (YELLOW) Urine Appearance (CLEAR) Urine pH (5-6) Ur Specific [place] (1.005-1.025) Urine Protein (Negative) Urine Ketones (NEGATIVE) Urine Blood (0-5) Mikhail/ul Urine Nitrite (NEGATIVE) Urine Bilirubin (NEGATIVE) Urine Urobilinogen (0-1) mg/dL Ur Leukocyte Esterase (NEGATIVE) Urine WBC (Auto) (0-5) /HPF Urine RBC (Auto) (0-2) /HPF U Epithel Cells (Auto) (FEW) /HPF Urine Bacteria (Auto) (NEGATIVE) /HPF Urine Culture Reflexed (NO) Urine Glucose (NEGATIVE) mg/dL Radiology Exams: Radiology Procedures Category Date Time Status CHEST 1 VIEW (PORTABLE) Stat Exams 06/11/19 10:05 Completed Assessment/Plan (1) Influenza A Current Visit: Yes Status: Acute Assessment & Plan: continue tamiflu Code(s): J10.1 - FLU DUE TO OTH IDENT INFLUENZA VIRUS W OTH RESP MANIFEST (2) Acute exacerbation of chronic obstructive airways disease Current Visit: Yes Status: Acute Assessment & Plan: solu medrol, levaquin and nebs at this time Code(s): J44.1 - CHRONIC OBSTRUCTIVE PULMONARY DISEASE W (ACUTE) EXACERBATION
[2019-06-12] MEDS: NovoLOG Insulin SQ PRN ×4 (08:36→21:27)
[2019-06-12] MEDS: Cozaar 50 MG PO SCH (08:37)
[2019-06-12] MEDS: Flomax 0.4 MG PO SCH (08:38)
[2019-06-12] MEDS: Paxil 20 MG PO SCH (08:39)
[2019-06-12] MEDS: NORVASC 5 MG PO SCH (08:39)
[2019-06-12] MEDS: Proscar 5 MG PO SCH (08:40)
[2019-06-12] MEDS: Protonix 40MG Tablet PO SCH ×2 (08:40→21:27)
[2019-06-12] MEDS: Tamiflu 75MG Capsule PO SCH ×2 (08:40→21:27)
[2019-06-12] MEDS: Toprol Xl 50 MG PO SCH (08:41)
[2019-06-12] MEDS: Sodium Chloride 0.9% 1000 ML 1,000 ML IV SCH (09:47)
[2019-06-12] MEDS: Levofloxacin 500MG/100ML D5W 500 MG/100 ML BAG IV SCH (09:47)
[2019-06-12] MEDS: MOTRIN 400 MG PO PRN ×2 (09:58→15:41)
[2019-06-12] MEDS ORDERED: NON-FORMULARY ITEM (Losartan Potassium [Cozaar] 100 MG) PO SCH (10:00)
[2019-06-12] MEDS ORDERED: NON-FORMULARY ITEM (Amlodipine Besylate 10 Mg [Norvasc 10 Mg] 10 MG) PO SCH (10:00)
[2019-06-12] MEDS ORDERED: PROVENTIL 2.5 MG/3 ML NEB IH PRN (20:15)
[2019-06-12] MEDS: Ambien 5 MG Tablet PO PRN (21:27)
[2019-06-13] MEDS: NovoLOG Insulin SQ PRN ×2 (00:59→07:52)
[2019-06-13] MEDS: Sodium Chloride 0.9% 1000 ML 1,000 ML IV SCH (02:54)
[2019-06-13] MEDS: PROVENTIL 2.5 MG/3 ML NEB IH SCH ×2 (05:11→10:32)
[2019-06-13 05:22] LABS: Absolute Neutrophil Ct (ANC) 12.13 (1.4-6.9); Basophil (Absolute #) 0 (0-0.4); Eosinophil (Absolute #) 0 (0-0.5); Hematocrit 39.1 % (42-50); Hemoglobin 13.1 gm/dl (12.5-18.0); Lymphocyte (Absolute #) 0.89 (1.0-4.6); Lymphocytes % 6.5 % (24.0-44.0); Mean Cell Volume 83.4 fl (78-100); Mean Corpuscular Hemoglobin 27.9 pg (26-32); Mean Corpuscular Hgb Concent. 33.5 g/dl (32-36); Monocyte (Absolute #) 0.63 (0.0-1.3); Monocytes % 4.6 % (0.0-12.0); Neutrophil % 88.9 % (36.0-66.0); Platelet Count 222 K/mm3 (150-450); Red Blood Count 4.69 M/mm3 (4.1-5.6); Red Cell Distribution Width 14.2 % (11.5-14.0); White Blood Count 13.7 K/mm3 (4.0-10.5)
[2019-06-13] MEDS: solu-MEDROL 125 MG IV SCH (06:03)
[2019-06-13 06:10] LABS: BLOOD UREA NITROGEN 18 mg/dL (9-20); CHLORIDE 101 mmol/L (98-107); Calcium 8.7 mg/dL (8.4-10.2); Carbon Dioxide 28 mmol/L (22-30); Creatinine 1 0.65 mg/dL (0.66-1.25); Glucose 172 mg/dL (74-106); SODIUM 134 mmol/L (137-145)
[2019-06-13 07:26] VITALS: O2SAT 96
[2019-06-13] MEDS: Cozaar 50 MG PO SCH (08:20)
[2019-06-13] MEDS: Flomax 0.4 MG PO SCH (08:23)
[2019-06-13] MEDS: Levofloxacin 500MG/100ML D5W 500 MG/100 ML BAG IV SCH (08:24)
[2019-06-13] MEDS: NORVASC 5 MG PO SCH (08:24)
[2019-06-13] MEDS: Paxil 20 MG PO SCH (08:25)
[2019-06-13] MEDS: Toprol Xl 50 MG PO SCH (08:28)
[2019-06-13] MEDS: Protonix 40MG Tablet PO SCH (08:28)
[2019-06-13] MEDS: Tamiflu 75MG Capsule PO SCH (08:28)
--- NOTE | 2019-06-13 08:29 | PCM.DS ---
Discharge Summary Date of Admission: 06/11/19 11:25 Admitting Physician: KIMBERLY MEYERS Primary Care Provider: JOSEPH CORLEY Allergies Allergies Iodinated Contrast Media [Iodinated Contrast Media - IV Dye] Allergy (Verified 06/11/19 09:59) diff breathing [id number] Reductase Inhibitor Adverse Reaction (Verified 06/11/19 09:59) hurt all over/achiness Hospital Summary - Hospital Course Hospital Course: patient was admitted with influenza a and copd exacerbation, has been afebrile, lung sounds are much better and his sats are good on room air. - Vitals & Intake/Output Vital Signs: Vital Signs Temperature 98.3 F 06/13/19 07:24 Pulse Rate 103 H 06/13/19 07:24 Respiratory Rate 20 06/13/19 07:24 Blood Pressure 155/70 06/13/19 07:24 O2 Sat by Pulse Oximetry 96 06/13/19 07:24 Intake & Output: Intake & Output 06/10/19 06/11/19 06/12/19 06/13/19 11:59 11:59 11:59 11:59 Intake Total 3561 3158 Output Total 3250 3025 Balance 311 133 Weight 105.233 kg 102 kg 102.8 kg - Lab Result Diagrams: 06/13/19 04:45 06/13/19 04:45 Lab Results-Last 24 Hrs: Accuchecks Date 06/13/19 Date 06/12/19 Date 06/12/19 Date 06/12/19 Time 00:05 Time 19:00 Time 16:30 Time 11:30 Accucheck Value: 207 Accucheck Value: 254 Accucheck Value: 166 Accucheck Value: 241 Lab Results-Last 24 Hours 06/13/19 06/13/19 Range/Units 04:45 04:45 WBC 13.7 H (4.0-10.5) K/mm3 RBC 4.69 (4.1-5.6) M/mm3 Hgb 13.1 (12.5-18.0) gm/dl Hct 39.1 L (42-50) % MCV 83.4 (78-100) fl MCH 27.9 (26-32) pg MCHC 33.5 (32-36) g/dl RDW 14.2 H (11.5-14.0) % Plt Count 222 (150-450) K/mm3 MPV 10.0 (7.5-11.0) fl Gran % 88.9 H (36.0-66.0) % Eos # (Auto) 0 (0-0.5) Absolute Lymphs (auto) 0.89 L (1.0-4.6) Absolute Monos (auto) 0.63 (0.0-1.3) Lymphocytes % 6.5 L (24.0-44.0) % Monocytes % 4.6 (0.0-12.0) % Eosinophils % 0.0 (0.00-5.0) % Basophils % 0.0 (0.0-0.4) % Absolute Granulocytes 12.13 H (1.4-6.9) Basophils # 0 (0-0.4) Sodium 134 L (137-145) mmol/L Potassium 4.0 (3.5-5.1) mmol/L Chloride 101 (98-107) mmol/L Carbon Dioxide 28 (22-30) mmol/L Anion Gap 9.0 (5-15) MEQ/L BUN 18 (9-20) mg/dL Creatinine 0.65 L (0.66-1.25) mg/dL Estimated GFR > 60.0 ML/MIN Glucose 172 H (74-106) mg/dL Calcium 8.7 (8.4-10.2) mg/dL Micro Results-Entire Visit: Microbiology 06/11/19 10:25 Blood Culture - Preliminary Blood NO GROWTH TO DATE 06/11/19 10:15 Blood Culture - Preliminary Blood NO GROWTH TO DATE Accuchecks Date 06/13/19 Date 06/12/19 Date 06/12/19 Date 06/12/19 Time 00:05 Time 19:00 Time 16:30 Time 11:30 Accucheck Value: 207 Accucheck Value: 254 Accucheck Value: 166 Accucheck Value: 241 - Radiology Exams Ordered Rad Exams-Entire Visit: Radiology Procedures Category Date Time Status CHEST 1 VIEW (PORTABLE) Stat Exams 06/11/19 10:05 Completed - Procedures and Test Procedures and Tests throughout Hospitalization: Therapy Orders & Screens 06/11/19 10:19 Respiratory Therapy Assessment DAILY Comment: 06/11/19 10:22 Peak Expiratory Flow Rate ONCE Comment: Reason For Exam: 06/11/19 11:51 Oxygen Nasal Cannula 2 lpm Comment: Discharge Exam General Appearance: no apparent distress, alert Neck Exam: normal inspection, non-tender, supple, full range of motion Respiratory Exam: normal breath sounds, lungs clear, No respiratory distress Cardiovascular Exam: regular rate/rhythm, normal heart sounds Gastrointestinal/Abdomen Exam: soft, No tenderness, No mass Extremity Exam: normal inspection, normal range of motion Skin Exam: normal color, warm, dry Final Diagnosis/Problem List - Final Discharge Diagnosis/Problem (1) Influenza A Current Visit: Yes Status: Acute Code(s): J10.1 - FLU DUE TO OTH IDENT INFLUENZA VIRUS W OTH RESP MANIFEST (2) Acute exacerbation of chronic obstructive airways disease Current Visit: Yes Status: Acute Code(s): J44.1 - CHRONIC OBSTRUCTIVE PULMONARY DISEASE W (ACUTE) EXACERBATION - Discharge Disposition: Home, Self-Care Condition: Good Prescriptions: New Prednisone 20 mg [Deltasone 20 mg] 20 mg PO UD #9 tablet Albuterol/Ipratropium 3ml Neb* [DUONEB 0.5-3 MG/3 ml Neb] 3 ml IH Q6H PRN PRN #100 ampul.neb PRN Reason: Shortness Of Breath Nebulizer and Compressor [Easy Air Compressor Nebulizer] 1 each UD #1 each Levofloxacin [Levaquin] 500 mg PO DAILY #5 tablet Albuterol Sulfate [Proair Hfa] 2 puffs IH Q4-6HPRN PRN #2 [id number] PRN Reason: Shortness Of Breath Continue Losartan Potassium [Cozaar] 100 mg PO DAILY hydroCHLOROthiazide [Hydrochlorothiazide] 50 mg PO DAILY Metformin HCl [Metformin ER Gastric] 1,000 mg PO BID Amlodipine Besylate 10 mg [Norvasc 10 MG] 10 mg PO DAILY PANTOPRAZOLE 40 mg Tablet [Protonix 40MG Tablet] 40 mg PO BID Tamsulosin HCl 0.4 mg [Flomax 0.4 MG] 0.4 mg PO DAILY Paroxetine HCl 20 mg [Paxil 20 MG] 10 mg PO DAILY Cholecalciferol (Vitamin D3) [Vitamin D] 1,000 unit PO DAILY Finasteride 5 mg [Proscar 5 MG] 5 mg PO DAILY Metoprolol Succinate 50 mg [Toprol Xl 50 MG] 50 mg DAILY Glipizide 5 mg [Glucotrol 5 MG] 5 mg PO DAILY Oseltamivir 75 mg [Tamiflu 75MG Capsule] 75 mg PO BID #10 cap Hydrocodone Bit/Acetaminophen [Hydrocodone-Acetaminophen Soln] 10 ml PO Q6H # 120 ml Ibuprofen [IBUPROFEN 400 MG TABLET] 800 mg PO Q8HPRN PRN PRN Reason: Pain Follow up with: JOSEPH CORLEY [Primary Care Provider] - 1 Week
[2019-06-13] MEDS: Proscar 5 MG PO SCH (09:47)
[2019-06-13 11:08] VITALS: BP 144/72; PULSE 78
== END 2019-06-13 11:00 | disposition home or self-care (01) ==
LOC: ED 09:38 → MED SURG 11:25
PROVIDERS: ADMIT Family Medicine; ATTEND Family Medicine
DX: J10.1 Influenza due to other identified influenza virus with other respiratory manifestations (principal); J44.1 Chronic obstructive pulmonary disease with (acute) exacerbation; I10 Essential (primary) hypertension; I25.10 Atherosclerotic heart disease of native coronary artery without angina pectoris; E78.00 Pure hypercholesterolemia, unspecified; I25.2 Old myocardial infarction; Z79.899 Other long term (current) drug therapy; E11.9 Type 2 diabetes mellitus without complications; M19.90 Unspecified osteoarthritis, unspecified site; K21.9 Gastro-esophageal reflux disease without esophagitis; F41.9 Anxiety disorder, unspecified; Z85.46 Personal history of malignant neoplasm of prostate
CPT/HCPCS: 36000; 36415; 71045; 80048; 80053; 81001; 82962; 83036; 83605; 83735; 83880; 84484; 85025; 85027; 87040; 93005; 93268; 94150; 94640; 94760; 96365; 96374; 99285; G0378; J1956; J2930; J3475; J7609; A9270-GY

== ENCOUNTER 2023-03-05 13:05 | Emergency (ER) | payer MEDICARE ==
[2023-03-05 13:27] VITALS: TEMP 97.6
[2023-03-05] MEDS ORDERED: Sodium Chloride 0.9% 1000 ML 1,000 ML IV STA (13:31)
[2023-03-05] MEDS ORDERED: Sodium Chloride 0.9% 1000 ML 1,000 ML ONE (13:41)
[2023-03-05 13:59] LABS: Absolute Neutrophil Ct (ANC) 4.87 x10^3/uL (1.4-6.9); BASOPHIL % 0.6 % (0.0-0.4); Basophil (Absolute #) 0.04 x10^3/uL (0-0.4); Eosinophil % 4.7 % (0.00-5.0); Eosinophil (Absolute #) 0.33 x10^3/uL (0-0.5); Hematocrit 38.9 % (42-50); Hemoglobin 12.8 g/dL (12.5-18.0); IMMATURE GRAN # 0.05 x10^3u/L (0.00-0.03); IMMATURE GRAN % 0.7 % (0.00-0.4); Lymphocyte (Absolute #) 1.26 x10^3/uL (1.0-4.6); Lymphocytes % 17.9 % (24.0-44.0); Mean Cell Volume 84.9 fL (78-100); Mean Corpuscular Hemoglobin 27.9 pg (26-32); Mean Corpuscular Hgb Concent. 32.9 g/dL (32-36); Mean Platelet Volume 10.1 fL (7.5-11.0); Monocyte (Absolute #) 0.49 x10^3/uL (0.0-1.3); Neutrophil % 69.1 % (36.0-66.0); Platelet Count 276 x10^3/uL (150-450); Red Blood Count 4.58 x10^6/uL (4.1-5.6); Red Cell Distribution Width 14.4 % (11.5-14.0)
--- NOTE | 2023-03-05 14:01 | XRAY ---
Indication: Weakness. Comparison: May 09, 2021 Portable apical lordotic chest demonstrates new patchy right base infiltrate versus atelectasis. Remaining heart and left lung unremarkable with again with chronic left hemidiaphragm elevation. Bony thorax intact again with mild degenerative changes.
[2023-03-05 14:14] LABS: ANION GAP 16.3 MEQ/L (5-15); BILIRUBIN,TOTAL 0.6 mg/dL (0.2-1.3); Creatinine 1 1.41 mg/dL (0.66-1.25); EST GLOMERULAR FILTRATION RATE 51.3 ML/MIN; Potassium 4.7 mmol/L (3.5-5.1); Total Protein 7.1 g/dL (6.3-8.2)
[2023-03-05 14:17] LABS: INR 0.99 (0.8-3.0); PROTIME 10.8 SECONDS (9.4-12.5)
--- NOTE | 2023-03-05 14:41 | ERPHSYRPT ---
- History of Present Illness Time Seen by Provider: 03/05/23 13:30 Source: patient, family Patient Subjective Stated Complaint: pt here for low b/p and low bs off and on at home for last 7 days. started on new medication,states vision outsed is bad Triage Nursing Assessment: pt alert, resp easy, skin w/d/p. no edema noted, abd soft, able to undress self . Physician History: Patient is a 77-year-old white male who has had intermittent hypotension and hypoglycemia at home for the past week or so. He also complains of some blurred vision at times he had a knee replaced 5 weeks ago and 1 week ago he was started on Jardiance. He has had no appetite since his surgery. Timing/Duration: week(s) (1) Severity: moderate Associated Symptoms: weakness Allergies/Adverse Reactions: Iodinated Contrast Media [Iodinated Contrast Media - IV Dye] Allergy (Verified 03/05/23 13:20) diff breathing Xvslumd-BKD-NbJ Reductase Inhibitor [Mutjgbb-Ljf-Dnc Reductase Inhibitor] Adverse Reaction (Verified 03/05/23 13:20) hurt all over/achiness Home Medications: Amlodipine Besylate 10 mg [Norvasc 10 MG] 10 mg PO DAILY 02/02/17 [History] Cholecalciferol (Vitamin D3) [Vitamin D] 1,000 unit PO DAILY 02/02/17 [History] Finasteride 5 mg [Proscar 5 MG] 5 mg PO DAILY 02/02/17 [History] Losartan Potassium [Cozaar] 100 mg PO DAILY 02/02/17 [History] Paroxetine HCl 20 mg [Paxil 20 MG] 10 mg PO DAILY 02/02/17 [History] Tamsulosin HCl 0.4 mg [Flomax 0.4 MG] 0.4 mg PO DAILY 02/02/17 [History] hydroCHLOROthiazide [Hydrochlorothiazide] 50 mg PO DAILY 02/02/17 [History] Metoprolol Succinate 50 mg [Toprol Xl 50 MG] 50 mg DAILY 09/08/18 [History] Glipizide 5 mg [Glucotrol 5 MG] 5 mg PO DAILY 06/09/19 [History] Ibuprofen [IBUPROFEN 400 MG TABLET] 800 mg PO Q8HPRN PRN 06/11/19 [History] Alogliptin Benzoate [Alogliptin] 25 mg PO DAILY 03/05/23 [History] Aspirin EC 81 mg [Ecotrin 81 mg] 1 ea DAILY 03/05/23 [History] Hx Tetanus, Diphtheria Vaccination/Date Given: No Hx Influenza Vaccination/Date Given: Yes Hx Pneumococcal Vaccination/Date Given: Yes Immunizations Up to Date: Yes Travel Risk - International Travel Have you traveled outside of the country in past 3 weeks: No - Coronavirus Screening Are you exhibiting any of the following symptoms?: No Close contact with a COVID-19 positive Pt in past 14-21 Days: No - Vaccine Status Have you recieved a Covid-19 vaccination: Yes 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[employer] - Vaccination Dates Date of 2cond Vaccination (if applicable): 2020 - Review of Systems Constitutional: Weakness, Weight Loss, No Fever, No Chills Eyes: No Symptoms Ears, Nose, & Throat: No Symptoms Respiratory: No Cough, No Dyspnea Cardiac: No Chest Pain, No Edema, No Syncope Abdominal/Gastrointestinal: No Abdominal Pain, No Nausea, No Vomiting, No Diarrhea Genitourinary Symptoms: No Dysuria Musculoskeletal: No Back Pain, No Neck Pain Skin: No Rash Neurological: No Dizziness, No Focal Weakness, No Sensory Changes Psychological: No Symptoms Endocrine: No Symptoms All Other Systems: Reviewed and Negative - Past Medical History Pertinent Past Medical History: Yes Neurological History: No Pertinent History ENT History: No Pertinent History Cardiac History: Coronary Artery Disease, High Cholesterol, Hypertension, Myocardial Infarction ([place]) Respiratory History: COPD Endocrine Medical History: Diabetes Type II Musculoskeletal History: Arthritis GI Medical History: GERD, Hernia, Other History: No Pertinent History Psycho-Social History: Anxiety Male Reproductive Disorders: Prostate Cancer Other Medical History: hiatal hernia and umbilical hernia - Past Surgical History Past Surgical History: Yes Neuro Surgical History: No Pertinent History Cardiac: Cardiac Catheterization Respiratory: No Pertinent History Gastrointestinal: No Pertinent History Genitourinary: No Pertinent History Musculoskeletal: No Pertinent History, Orthopedic Surgery Male Surgical History: No Pertinent History Other Surgical History: right handtendon, back and nose cyst removed, right knee surg, nose surg skin cancer, prostate bx with radiation beading.left knee repla vasiliy - Social History Smoking Status: Former smoker Exposure to second hand smoke: No Drug Use: none Patient Lives Alone: No - Nursing Vital Signs Nursing Vital Signs: Initial Vital Signs Pulse Rate 57 L 03/05/23 13:16 Respiratory Rate 18 03/05/23 13:16 Blood Pressure 95/53 03/05/23 13:16 O2 Sat by Pulse Oximetry 98 03/05/23 13:16 Pain Scale Pain Intensity 5 - Physical Exam General Appearance: no apparent distress, alert Eye Exam: PERRL/EOMI, eyes nml inspection Ears, Nose, Throat Exam: normal ENT inspection, TMs normal, pharynx normal, moist mucous membranes Neck Exam: normal inspection, non-tender, supple, full range of motion Respiratory Exam: normal breath sounds, lungs clear, No respiratory distress Cardiovascular Exam: regular rate/rhythm, normal heart sounds, normal peripheral pulses Gastrointestinal/Abdomen Exam: soft, normal bowel sounds, No tenderness, No mass Back Exam: normal inspection, normal range of motion, No CVA tenderness, No vertebral tenderness Extremity Exam: normal inspection, normal range of motion, pelvis stable Neurologic Exam: alert, oriented x 3, cooperative, normal mood/affect, nml cerebellar function, nml station & gait, sensation nml, No motor deficits Skin Exam: normal color, warm, dry, No rash Lymphatic Exam: No adenopathy SpO2: 96 - Course Nursing assessment & vital signs reviewed: Yes EKG Interpreted by Me: RATE (57), Sinus Tra, NORMAL QRS, Non-specific ST Changes - Radiology Exams Chest X-ray Interpretation: Reviewed by me Ordered Tests: Active Orders 24 hr Category Date Time Status EKG-ER Only STAT Care 03/05/23 13:31 Active IV Insertion STAT Care 03/05/23 13:31 Active CHEST 1 VIEW (PORTABLE) Stat Exams 03/05/23 13:32 Completed AMYLASE Stat Lab 03/05/23 13:35 Completed CBC W DIFF Stat Lab 03/05/23 13:35 Completed CMP Stat Lab 03/05/23 13:35 Completed LIPASE Stat Lab 03/05/23 13:35 Completed Lactic Acid Stat Lab 03/05/23 13:43 Completed OB-FECAL SCREEN Stat Lab 03/05/23 Ordered PROTIME WITH INR Stat Lab 03/05/23 13:31 Completed TROPONIN Q4H Lab 03/05/23 13:45 Completed TROPONIN Q4H Lab 03/05/23 17:45 Ordered TROPONIN Q4H Lab 03/05/23 21:45 Ordered UA W/RFX UR CULTURE Stat Lab 03/05/23 13:32 Ordered Medication Summary Discontinued Medications Generic Name Dose Route Start Last Admin Trade Name Adams PRN Reason Stop Dose Admin Sodium Chloride 1,000 mls @ 999 mls/hr 03/05/23 13:31 03/05/23 13:42 Sodium Chloride 0.9% 1000 Ml IV 03/05/23 14:31 999 mls/hr .Q1H1M STA Administration Sodium Chloride Confirm 03/05/23 13:41 Sodium Chloride 0.9% 1000 Ml Administered 03/05/23 13:42 Dose 1,000 mls @ ud .ROUTE .STK-MED ONE Lab/Rad Data: Laboratory Result Diagrams 03/05/23 13:35 03/05/23 13:35 Laboratory Results 03/05/23 03/05/23 03/05/23 Range/Units 13:49 13:45 13:43 WBC (4.0-10.5) x10^3/uL RBC (4.1-5.6) x10^6/uL Hgb (12.5-18.0) g/dL Hct (42-50) % MCV (78-100) fL MCH (26-32) pg MCHC (32-36) g/dL RDW (11.5-14.0) % Plt Count (150-450) x10^3/uL MPV (7.5-11.0) fL Gran % (36.0-66.0) % Immature Gran % (Auto) (0.00-0.4) % Nucleat RBC Rel Count (0.00-0.1) % Eos # (Auto) (0-0.5) x10^3/uL Immature Gran # (Auto) (0.00-0.03) x10^3u/L Absolute Lymphs (auto) (1.0-4.6) x10^3/uL Absolute Monos (auto) (0.0-1.3) x10^3/uL Absolute Nucleated RBC (0.00-0.01) x10^3u/L Lymphocytes % (24.0-44.0) % Monocytes % (0.0-12.0) % Eosinophils % (0.00-5.0) % Basophils % (0.0-0.4) % Absolute Granulocytes (1.4-6.9) x10^3/uL Basophils # (0-0.4) x10^3/uL PT (9.4-12.5) SECONDS INR (0.8-3.0) Sodium (137-145) mmol/L Potassium (3.5-5.1) mmol/L Chloride (98-107) mmol/L Carbon Dioxide (22-30) mmol/L Anion Gap (5-15) MEQ/L BUN (9-20) mg/dL Creatinine (0.66-1.25) mg/dL Estimated GFR ML/MIN Glucose (74-106) mg/dL Hemoglobin A1c 6.50 H (4.5-6.0) % Lactic Acid 3.1 H (0.4-2.0) Calcium (8.4-10.2) mg/dL Total Bilirubin (0.2-1.3) mg/dL AST (17-59) U/L ALT (0-50) U/L Alkaline Phosphatase (38-126) U/L Troponin I < 0.012 (0.000-0.034) ng/mL Serum Total Protein (6.3-8.2) g/dL Albumin (3.5-5.0) g/dL Amylase (30-110) U/L Lipase (23-300) U/L 03/05/23 03/05/23 03/05/23 Range/Units 13:35 13:35 13:31 WBC 7.0 (4.0-10.5) x10^3/uL RBC 4.58 (4.1-5.6) x10^6/uL Hgb 12.8 (12.5-18.0) g/dL Hct 38.9 L (42-50) % MCV 84.9 (78-100) fL MCH 27.9 (26-32) pg MCHC 32.9 (32-36) g/dL RDW 14.4 H (11.5-14.0) % Plt Count 276 (150-450) x10^3/uL MPV 10.1 (7.5-11.0) fL Gran % 69.1 H (36.0-66.0) % Immature Gran % (Auto) 0.7 H (0.00-0.4) % Nucleat RBC Rel Count 0.0 (0.00-0.1) % Eos # (Auto) 0.33 (0-0.5) x10^3/uL Immature Gran # (Auto) 0.05 H (0.00-0.03) x10^3u/L Absolute Lymphs (auto) 1.26 (1.0-4.6) x10^3/uL Absolute Monos (auto) 0.49 (0.0-1.3) x10^3/uL Absolute Nucleated RBC 0.00 (0.00-0.01) x10^3u/L Lymphocytes % 17.9 L (24.0-44.0) % Monocytes % 7.0 (0.0-12.0) % Eosinophils % 4.7 (0.00-5.0) % Basophils % 0.6 (0.0-0.4) % Absolute Granulocytes 4.87 (1.4-6.9) x10^3/uL Basophils # 0.04 (0-0.4) x10^3/uL PT 10.8 (9.4-12.5) SECONDS INR 0.99 (0.8-3.0) Sodium 132 L (137-145) mmol/L Potassium 4.7 (3.5-5.1) mmol/L Chloride 99 (98-107) mmol/L Carbon Dioxide 22 (22-30) mmol/L Anion Gap 16.3 H (5-15) MEQ/L BUN 21 H (9-20) mg/dL Creatinine 1.41 H (0.66-1.25) mg/dL Estimated GFR 51.3 ML/MIN Glucose 150 H (74-106) mg/dL Hemoglobin A1c (4.5-6.0) % Lactic Acid (0.4-2.0) Calcium 9.0 (8.4-10.2) mg/dL Total Bilirubin 0.60 (0.2-1.3) mg/dL AST 22 (17-59) U/L ALT 21 (0-50) U/L Alkaline Phosphatase 86 (38-126) U/L Troponin I (0.000-0.034) ng/mL Serum Total Protein 7.1 (6.3-8.2) g/dL Albumin 4.0 (3.5-5.0) g/dL Amylase 84 (30-110) U/L Lipase 91 (23-300) U/L - Progress Progress: improved Progress Note: 03/05/23 14:40 Patient's labs were reviewed and the patient was instructed to stop his Jardiance until he sees [facility]. Medical Desision Making - Independent Historian Additional History obtained from: Spouse - Diagnostic Testing Diagnostic test were ordered, analyzed, and reviewed by me: Yes Radiological Interpretation: Reviewed by me - Risk of complications Low Risk: Low risk of morbidity from additional dx testing or treatment - Departure Departure Disposition: Home Clinical Impression: Hypotension Condition: Stable Critical Care Time: No Referrals: JOSEPH CORLEY [Primary Care Provider] - Follow up/PCP as directed Instructions: Orthostatic Hypotension (DC), Low Blood Pressure (DC)
[2023-03-05 15:47] VITALS: BP 120/64; PULSE 59; RESP 20; O2SAT 97
== END 2023-03-05 15:48 | disposition home or self-care (01) ==
LOC: ED 13:05
DX: I95.9 Hypotension, unspecified (principal); E78.5 Hyperlipidemia, unspecified; I10 Essential (primary) hypertension; E11.9 Type 2 diabetes mellitus without complications; Z79.84 Long term (current) use of oral hypoglycemic drugs; Z79.899 Other long term (current) drug therapy
CPT/HCPCS: 36000; 36415; 71045; 80053; 82150; 83036; 83605; 83690; 84484; 85025; 85610; 93005; 99284

== ENCOUNTER 2023-03-06 15:52 | Emergency (ER) | payer MEDICARE ==
[2023-03-06] MEDS ORDERED: Sodium Chloride 0.9% 1000 ML 1,000 ML ONE (16:25)
[2023-03-06] MEDS ORDERED: Sodium Chloride 0.9% 1000 ML 1,000 ML IV STA (16:28)
[2023-03-06 16:35] VITALS: TEMP 97.8
--- NOTE | 2023-03-06 16:35 | ERPHSYRPT ---
- History of Present Illness Time Seen by Provider: 03/06/23 16:24 Source: patient Exam Limitations: no limitations Patient Subjective Stated Complaint: pt states that he was sent over to the er per Dr. Kyle. pt states that he was here to get a litter of fluid. Triage Nursing Assessment: pt ambulated into the er; pt is axo x4; skin PDW; no respiratory distress present; clear lung sounds in all lobes; clear heart tone; vitals wnl Physician History: Patient 77-year-old male presents to our ED as a referral from Dr. Kyle's office. Patient was seen in our ED yesterday for feeling unwell and low blood pressure. Patient had laboratory work-up and IV fluids. Symptoms resolved patient was discharged home. Patient followed up with Dr. Kyle today. Patient's blood pressure today was reportedly low. Dr. Kyle sent patient to our ED to obtain repeat labs and IV fluids. I spoke to Dr. Kyle at 4 PM regarding patient's return visit. Dr. Kyle requested a provider evaluation labs and IV fluids. Patient states that he was in our ED yesterday. Patient states that complete lab work-up was completed he does not believe repeat labs are necessary. Patient refused lab work-up. However patient agreed to IV fluids. Patient's blood pressure is currently within normal limits. Patient is currently asymptomatic. Patient has no complaints. at bedside. They voiced no other complaints or concerns at this time. Portions of this note were created with voice recognition technology. There may be grammatical, spelling, punctuation or sound alike errors Timing/Duration: today Severity: moderate Modifying Factors: Improves With: nothing Associated Symptoms: denies symptoms Allergies/Adverse Reactions: Iodinated Contrast Media [Iodinated Contrast Media - IV Dye] Allergy (Verified 03/06/23 16:06) diff breathing Mdygrgw-QGR-ZhC Reductase Inhibitor [Snjpdsa-Uqz-Pfb Reductase Inhibitor] Adverse Reaction (Verified 03/06/23 16:06) hurt all over/achiness Home Medications: Amlodipine Besylate 10 mg [Norvasc 10 MG] 5 mg PO BID 02/02/17 [History] Cholecalciferol (Vitamin D3) [Vitamin D] 25 mg PO DAILY 02/02/17 [History] Finasteride 5 mg [Proscar 5 MG] 5 mg PO DAILY 02/02/17 [History] Losartan Potassium [Cozaar] 100 mg PO DAILY 02/02/17 [History] Paroxetine HCl 20 mg [Paxil 20 MG] 10 mg PO DAILY 02/02/17 [History] Tamsulosin HCl 0.4 mg [Flomax 0.4 MG] 0.4 mg PO DAILY 02/02/17 [History] hydroCHLOROthiazide [Hydrochlorothiazide] 25 mg PO DAILY 02/02/17 [History] Glipizide 5 mg [Glucotrol 5 MG] 5 mg PO DAILY 06/09/19 [History] Alogliptin Benzoate [Alogliptin] 25 mg PO DAILY 03/05/23 [History] Aspirin EC 81 mg [Ecotrin 81 mg] 1 ea DAILY 03/05/23 [History] Metoprolol Tartrate 50 mg PO BID 03/06/23 [History] Hx Tetanus, Diphtheria Vaccination/Date Given: No Hx Influenza Vaccination/Date Given: Yes Hx Pneumococcal Vaccination/Date Given: Yes Travel Risk - International Travel Have you traveled outside of the country in past 3 weeks: No - Coronavirus Screening Are you exhibiting any of the following symptoms?: No Close contact with a COVID-19 positive Pt in past 14-21 Days: No - Vaccine Status Have you 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[employer] - Vaccination Dates Date of 2cond Vaccination (if applicable): 2020 - Review of Systems Constitutional: No Symptoms, No Fever, No Chills Eyes: No Symptoms Ears, Nose, & Throat: No Symptoms Respiratory: No Symptoms, No Cough, No Dyspnea Cardiac: No Symptoms, No Chest Pain, No Edema, No Syncope Abdominal/Gastrointestinal: No Symptoms, No Abdominal Pain, No Nausea, No Vomiting, No Diarrhea Genitourinary Symptoms: No Symptoms, No Dysuria Musculoskeletal: No Symptoms, No Back Pain, No Neck Pain Skin: No Symptoms, No Rash Neurological: No Symptoms, No Dizziness, No Focal Weakness, No Sensory Changes Psychological: No Symptoms Endocrine: No Symptoms Hematologic/Lymphatic: No Symptoms Immunological/Allergic: No Symptoms All Other Systems: Reviewed and Negative - Past Medical History Pertinent Past Medical History: Yes Neurological History: No Pertinent History ENT History: No Pertinent History Cardiac History: Coronary Artery Disease, High Cholesterol, Hypertension, Myocardial Infarction ([place]) Respiratory History: COPD Endocrine Medical History: Diabetes Type II Musculoskeletal History: Arthritis GI Medical History: GERD, Hernia, Other History: No Pertinent History Psycho-Social History: Anxiety Male Reproductive Disorders: Prostate Cancer Other Medical History: hiatal hernia and umbilical hernia - Past Surgical History Past Surgical History: Yes Neuro Surgical History: No Pertinent History Cardiac: Cardiac Catheterization Respiratory: No Pertinent History Gastrointestinal: No Pertinent History Genitourinary: No Pertinent History Musculoskeletal: No Pertinent History, Orthopedic Surgery Male Surgical History: No Pertinent History Other Surgical History: right handtendon, back and nose cyst removed, right knee surg, nose surg skin cancer, prostate bx with radiation beading.left knee replaced - Social History Smoking Status: Former smoker Exposure to second hand smoke: No Drug Use: none Patient Lives Alone: No - Nursing Vital Signs Nursing Vital Signs: Initial Vital Signs Temperature 97.8 F 03/06/23 16:02 Pulse Rate 66 03/06/23 16:02 Respiratory Rate 16 03/06/23 16:02 Blood Pressure 115/66 03/06/23 16:02 O2 Sat by Pulse Oximetry 95 03/06/23 16:02 Pain Scale Pain Intensity 0 - Physical Exam General Appearance: no apparent distress, alert Eye Exam: PERRL/EOMI, eyes nml inspection Ears, Nose, Throat Exam: normal ENT inspection, TMs normal, pharynx normal, moist mucous membranes Neck Exam: normal inspection, non-tender, supple, full range of motion Respiratory Exam: normal breath sounds, lungs clear, No respiratory distress Cardiovascular Exam: regular rate/rhythm, normal heart sounds, normal peripheral pulses Gastrointestinal/Abdomen Exam: soft, normal bowel sounds, No tenderness, No mass Back Exam: normal inspection, normal range of motion, No CVA tenderness, No vertebral tenderness Extremity Exam: normal inspection, normal range of motion, pelvis stable Neurologic Exam: alert, oriented x 3, cooperative, normal mood/affect, nml cerebellar function, nml station & gait, sensation nml, No motor deficits Skin Exam: normal color, warm, dry, No rash Lymphatic Exam: No adenopathy SpO2 Interpretation: normal SpO2: 95 O2 Delivery: Room Air - Course Nursing assessment & vital signs reviewed: Yes Ordered Tests: Medication Summary Discontinued Medications Generic Name Dose Route Start Last Admin Trade Name Freq PRN Reason Stop Dose Admin Sodium Chloride Confirm 03/06/23 16:25 Sodium Chloride 0.9% 1000 Ml Administered 03/06/23 16:26 Dose 1,000 mls @ ud .ROUTE .STK-MED ONE Sodium Chloride 1,000 mls @ 999 mls/hr 03/06/23 16:28 03/06/23 17:46 Sodium Chloride 0.9% 1000 Ml IV 03/06/23 17:28 Infused .Q1H1M STA Infusion - Progress Progress: improved Progress Note: Patient is 77-year-old male presents to our ED as a referral from his primary care doctor for evaluation. Patient was in our ED yesterday for the same. Patient was discharged home. They rechecked his blood pressure at home. Blood pressure was reportedly low. Patient contacted the primary care doctor who advised patient come to our ED for evaluation IV fluids and labs. Patient refused the labs. Patient states that they were necessary since they were completed yesterday. Patient agreed to the IV fluids. IV fluids administered. Patient remains asymptomatic. Blood pressure remains within normal limits. We spoke to Dr. Kyle regarding patient's visit. Dr. Kyle advised the labs the fluids and assessment of blood pressure. We will discharge patient home. Patient voices no other complaints or concerns at this time. Portions of this note were created with voice recognition technology. There may be grammatical, spelling, punctuation or sound alike errors Complexity of problems addressed is moderate acute complicated Complex of data reviewed and analyzed is moderate. Vitals were checked. Management and plan of care discussed with primary care physician. Risk of complication and a risk of morbidity/mortality of patient management is low. Patient discharged home. Vital stable. Time spent to discharge patient approximately 10 minutes. Plan of care established for shared decision making. No social determinants of health present Sapyta follow-up. Portions of this note were created with voice recognition technology. There may be grammatical, spelling, punctuation or sound alike errors 03/06/23 18:10 Counseled pt/family regarding: diagnosis, need for follow-up - Departure Departure Disposition: Home Clinical Impression: Hypotension, Encounter for medical screening examination Condition: Stable Critical Care Time: No Referrals: JOSEPH KYLE [Primary Care Provider] - Follow up/PCP as directed Additional Instructions: Discharge/Care Plan JENNIFER ROLDAN was seen on 03/06/23 in the Emergency Room. The patient was counseled regarding Diagnosis,Lab results, Imaging studies, need for follow up and when to return to the Emergency Room. Prescriptions given: Discharge Note I have spoken with the patient and/or caregivers. I have explained the patient's condition, diagnosis and treatment plan based on the information available to me at this time. I have answered the patient's and/or caregiver's questions and addressed any concerns. The patient and/or caregivers have as good understanding of the patient's diagnosis, condition and treatment plan as can be expected at this point. The vital signs have been stable. The patient's condition is stable and appropriate for discharge from the emergency department. The patient will pursue further outpatient evaluation with the primary care physician or other designated or consulting physician as outlined in the discharge instructions. The patient and/or caregivers are agreeable to this plan of care and follow-up instructions have been explained in detail. The patient and/or caregivers have received these instruction. The patient/and or caregivers are aware that any significant change in condition or worsening of symptoms should prompt an immediate return to this or the closest emergency department or call 911.
[2023-03-06 18:08] VITALS: BP 132/79
[2023-03-06 18:10] VITALS: PULSE 64; RESP 18
[2023-03-06 18:14] VITALS: O2SAT 95
== END 2023-03-06 18:18 | disposition home or self-care (01) ==
LOC: ED 15:52
DX: I95.9 Hypotension, unspecified (principal); E78.5 Hyperlipidemia, unspecified; I10 Essential (primary) hypertension; E11.9 Type 2 diabetes mellitus without complications; Z79.84 Long term (current) use of oral hypoglycemic drugs; Z79.899 Other long term (current) drug therapy
CPT/HCPCS: 36000; 99283

== ENCOUNTER 2025-01-20 19:47 | Emergency (ER) | payer MEDICARE ==
--- NOTE | 2025-01-20 19:57 | ERPHSYRPT ---
- History of Present Illness Time Seen by Provider: 01/20/25 19:56 Source: patient, family Exam Limitations: no limitations Physician History: This is a 79-year-old white male patient who arrives to the emergency department via private vehicle accompanied by his family and is a patient of Dr. Kyle. Patient presents with weakness. It is generalized. He also has associated low blood pressure. He has been seen in our emergency department multiple times for weakness and low blood pressure. Patient thinks he is dehydrated. He has diarrhea and the urine output in his leg bag has decreased. Patient denies chest pain. Patient denies abdominal pain. He has no shortness of breath. Patient is on chemotherapy for treatment of metastatic prostate cancer. His last dose of chemotherapy was 1 week ago. His next dose is January 27, 2025. He received chemotherapy twice a month, 2 weeks apart. Patient has a history of diabetes, coronary disease, hyperlipidemia, COPD, arthritis, gastroesophageal reflux disease and anxiety. Severity: mild (To moderate) Associated Symptoms: loss of appetite, malaise, weakness, other (Diarrhea), No nausea, No vomiting, No abdominal pain, No shortness of breath, No chest pain Allergies/Adverse Reactions: Iodinated Contrast Media [Iodinated Contrast Media - IV Dye] Allergy (Verified 01/20/25 20:11) diff breathing Urudvcn-IMD-GxA Reductase Inhibitor [Ztpbbpi-Bdy-Pxx Reductase Inhibitor] Adverse Reaction (Verified 01/20/25 20:11) hurt all over/achiness Home Medications: Amlodipine Besylate 10 mg [Norvasc 10 MG] 5 mg PO BID 02/02/17 [History] Cholecalciferol (Vitamin D3) [Vitamin D] 25 mg PO DAILY 02/02/17 [History] Losartan Potassium [Cozaar] 100 mg PO DAILY 02/02/17 [History] Paroxetine HCl 20 mg [Paxil 20 MG] 20 mg PO HS 02/02/17 [History] Tamsulosin HCl 0.4 mg [Flomax 0.4 MG] 0.4 mg PO HS 02/02/17 [History] Glipizide 5 mg [Glucotrol 5 MG] 5 mg PO DAILY 06/09/19 [History] Metformin HCl 500 mg [Glucophage 500 MG] 1 tab PO BID 10/29/24 [History] Mirabegron [Mirabegron ER] 1 tab PO HS 10/29/24 [History] Trospium Chloride 1 tab PO DAILY 10/29/24 [History] Bicalutamide 50 mg PO HS 01/20/25 [History] Finasteride 5 mg [Proscar 5 MG] 5 mg PO HS 01/20/25 [History] Folic Acid 1 mg [Folate 1 mg] 1 mg PO DAILY 01/20/25 [History] Metoprolol Succinate 25 mg Xl* [Toprol-Xl 25MG Tablets] 25 mg PO DAILY 01/20/25 [History] Prednisone 10 mg [Deltasone 10 mg] 3 tab PO Q15D 01/20/25 [History] Rivaroxaban 10 mg Tablet [Xarelto 10 mg Tablet] 20 mg PO DAILY 01/20/25 [History] Sitagliptin Phosphate 50 MG [Januvia 50 MG] 100 mg PO DAILY 01/20/25 [History] Hx Tetanus, Diphtheria Vaccination/Date Given: No Hx Influenza Vaccination/Date Given: Yes Hx Pneumococcal Vaccination/Date Given: Yes Travel Risk - International Travel Have you traveled outside of the country in past 3 weeks: No - Emerging Infectious Disease Are you exhibiting symptoms associated with any current EIDs: No - Review of Systems Constitutional: Weakness (Generalized) Eyes: No Symptoms Ears, Nose, & Throat: No Symptoms Respiratory: No Symptoms Cardiac: No Symptoms Abdominal/Gastrointestinal: Nausea, Diarrhea, Appetite Changes, No Abdominal Pain, No Vomiting Genitourinary Symptoms: Other (Decreased urine output in the last few days) Musculoskeletal: No Symptoms Skin: No Symptoms Neurological: No Symptoms Psychological: No Symptoms Endocrine: No Symptoms Hematologic/Lymphatic: No Symptoms Immunological/Allergic: No Symptoms All Other Systems: Reviewed and Negative - Past Medical History Pertinent Past Medical History: Yes Neurological History: No Pertinent History ENT History: No Pertinent History Cardiac History: Coronary Artery Disease, High Cholesterol, Hypertension, Myocardial Infarction (NH) Respiratory History: COPD Endocrine Medical History: Diabetes Type II Musculoskeletal History: Arthritis GI Medical History: GERD, Hernia, Other History: No Pertinent History Psycho-Social History: Anxiety Male Reproductive Disorders: Prostate Cancer Other Medical History: hiatal hernia and umbilical hernia. prostate cancer. hearing difficulties. Wears dentures - Past Surgical History Past Surgical History: Yes Neuro Surgical History: No Pertinent History Cardiac: Cardiac Catheterization Respiratory: No Pertinent History Gastrointestinal: No Pertinent History Genitourinary: No Pertinent History Musculoskeletal: No Pertinent History, Orthopedic Surgery Male Surgical History: No Pertinent History Other Surgical History: right handtendon, back and nose cyst removed, right knee surg, nose surg skin cancer, prostate bx with radiation beading.left knee replaced - Social History Smoking Status: Former smoker Exposure to second hand smoke: No Drug Use: none - Social Determinants of Health Will the patient participate in the screening: Declined to provide - Nursing Vital Signs Nursing Vital Signs: Initial Vital Signs Pulse Rate 89 01/20/25 20:00 Respiratory Rate 18 01/20/25 20:00 Blood Pressure 106/71 01/20/25 20:00 O2 Sat by Pulse Oximetry 98 01/20/25 20:00 Pain Scale Pain Intensity 0 - Physical Exam General Appearance: no apparent distress, alert Eye Exam: PERRL/EOMI, eyes nml inspection Ears, Nose, Throat Exam: dry mucous membranes Neck Exam: normal inspection, non-tender, supple, full range of motion Respiratory Exam: normal breath sounds, lungs clear, airway intact, No chest tenderness, No respiratory distress Cardiovascular Exam: regular rate/rhythm, normal heart sounds, normal peripheral pulses Gastrointestinal/Abdomen Exam: soft, normal bowel sounds, No tenderness Rectal Exam: not done Back Exam: normal inspection, normal range of motion, No CVA tenderness, No vertebral tenderness Extremity Exam: normal inspection, normal range of motion, pelvis stable Neurologic Exam: alert, oriented x 3, cooperative, plastic surgery coordinator II-XII nml as tested, normal mood/affect, nml cerebellar function, nml station & gait, sensation nml Skin Exam: normal color, warm, dry Lymphatic Exam: No adenopathy SpO2 Interpretation: normal O2 Delivery: Room Air - Course Nursing assessment & vital signs reviewed: Yes Ordered Tests: Active Orders 24 hr Category Date Time Status EKG-ER Only STAT Care 01/20/25 20:27 Active IV Insertion STAT Care 01/20/25 20:27 Active BLOOD CULTURE Stat Lab 01/20/25 20:47 Received CBC W DIFF Stat Lab 01/20/25 20:20 Completed CMP Stat Lab 01/20/25 20:20 Completed CULTURE,URINE Stat Lab 01/20/25 20:50 Received Lactic Acid Stat Lab 01/20/25 20:53 Completed MAGNESIUM Stat Lab 01/20/25 20:20 Completed Manual Differential NC Stat Lab 01/20/25 20:20 Completed NT PRO BNPII Stat Lab 01/20/25 20:20 Completed TROPONIN Q4H Lab 01/20/25 20:20 Completed TROPONIN Q4H Lab 01/21/25 00:30 Ordered TROPONIN Q4H Lab 01/21/25 04:30 Ordered UA W/RFX UR CULTURE Stat Lab 01/20/25 20:50 Completed Medication Summary Generic Name Dose Route Start Last Admin Trade Name Freq PRN Reason Stop Dose Admin Furosemide 20 mg 01/20/25 21:45 Furosemide 20 Mg/Vial IV 01/20/25 21:46 STAT ONE Sodium Chloride 500 mls @ 500 mls/hr 01/20/25 21:44 Sodium Chloride 0.9% 500 Ml IV 01/20/25 22:43 .Q1H ONE Discontinued Medications Generic Name Dose Route Start Last Admin Trade Name Freq PRN Reason Stop Dose Admin Sodium Chloride 1,000 mls @ 999 mls/hr 01/20/25 20:27 01/20/25 20:44 Sodium Chloride 0.9% 1000 Ml IV 01/20/25 21:27 999 mls/hr .Q1H1M STA Administration Sodium Chloride Confirm 01/20/25 20:42 Sodium Chloride 0.9% 1000 Ml Administered 01/20/25 20:43 Dose 1,000 mls @ ud .ROUTE .STK-MED ONE Lab/Rad Data: Laboratory Result Diagrams 01/20/25 20:20 01/20/25 20:20 Laboratory Results 01/20/25 01/20/25 01/20/25 Range/Units 20:53 20:50 20:20 WBC (4.23-9.07) x10^3/uL RBC (4.63-6.08) x10^6/uL Hgb (13.7-17.5) g/dL Hct (40.1-51.0) % MCV (79.0-92.2) fL MCH (25.7-32.2) pg MCHC (32.3-36.5) g/dL RDW (11.6-14.4) % Plt Count (163-337) x10^3/uL MPV (9.4-12.4) fL Sodium (135-145) mmol/L Potassium (3.5-5.1) mmol/L Chloride (98-107) mmol/L Carbon Dioxide (22-30) mmol/L Anion Gap (5-15) MEQ/L BUN (9-20) mg/dL Creatinine (0.66-1.25) mg/dL Estimated GFR ML/MIN Glucose (74-106) mg/dL Lactic Acid 2.1 H (0.4-2.0) Calcium (8.4-10.2) mg/dL Magnesium (1.6-2.3) mg/dL Total Bilirubin (0.2-1.3) mg/dL AST (17-59) U/L ALT (0-50) U/L Alkaline Phosphatase (38-126) U/L Troponin I < 0.012 (0.000-0.033) ng/mL NT-Pro-B Natriuret Pep (<300) pg/mL Serum Total Protein (6.3-8.2) g/dL Albumin (3.5-5.0) g/dL Urine Color Dark Yellow (Yellow) Urine Appearance Turbid A (Clear) Urine pH 5.5 (4.6-8.0) Ur Specific [place] 1.015 (1.005-1.030) Urine Protein 300 A (Negative) Urine Glucose (UA) Negative (Negative) mg/dL Urine Ketones Trace A (Negative) Urine Blood Large A (Negative) Urine Nitrite Negative (Negative) Urine Bilirubin Negative (Negative) Urine Urobilinogen 1.0 A (0.2) mg/dL Ur Leukocyte Esterase Large A (Negative) U Hyaline Cast (Auto) 20-50 (0-2) /LPF Urine Microscopic RBC 51-100 A (0-5) /HPF Urine Microscopic WBC >100 A (0-5) /HPF Ur Epithelial Cells Rare (None Seen) /HPF Urine Bacteria Many A (None Seen) /HPF Urine Culture Reflexed YES (NO) 01/20/25 01/20/25 Range/Units 20:20 20:20 WBC 35.7 H* (4.23-9.07) x10^3/uL RBC 3.71 L (4.63-6.08) x10^6/uL Hgb 10.1 L (13.7-17.5) g/dL Hct 30.6 L (40.1-51.0) % MCV 82.5 (79.0-92.2) fL MCH 27.2 (25.7-32.2) pg MCHC 33.0 (32.3-36.5) g/dL RDW 16.2 H (11.6-14.4) % Plt Count 324 (163-337) x10^3/uL MPV 10.0 (9.4-12.4) fL Sodium 128 L (135-145) mmol/L Potassium 3.9 (3.5-5.1) mmol/L Chloride 97 L (98-107) mmol/L Carbon Dioxide 25 (22-30) mmol/L Anion Gap 10.8 (5-15) MEQ/L BUN 19 (9-20) mg/dL Creatinine 1.38 H (0.66-1.25) mg/dL Estimated GFR 52.0 ML/MIN Glucose 146 H (74-106) mg/dL Lactic Acid (0.4-2.0) Calcium 8.3 L (8.4-10.2) mg/dL Magnesium 1.5 L (1.6-2.3) mg/dL Total Bilirubin 0.20 (0.2-1.3) mg/dL AST 24 (17-59) U/L ALT 21 (0-50) U/L Alkaline Phosphatase 145 H (38-126) U/L Troponin I (0.000-0.033) ng/mL NT-Pro-B Natriuret Pep 1740 (<300) pg/mL Serum Total Protein 5.8 L (6.3-8.2) g/dL Albumin 3.1 L (3.5-5.0) g/dL Urine Color (Yellow) Urine Appearance (Clear) Urine pH (4.6-8.0) Ur Specific [place] (1.005-1.030) Urine Protein (Negative) Urine Glucose (UA) (Negative) mg/dL Urine Ketones (Negative) Urine Blood (Negative) Urine Nitrite (Negative) Urine Bilirubin (Negative) Urine Urobilinogen (0.2) mg/dL Ur Leukocyte Esterase (Negative) U Hyaline Cast (Auto) (0-2) /LPF Urine Microscopic RBC (0-5) /HPF Urine Microscopic WBC (0-5) /HPF Ur Epithelial Cells (None Seen) /HPF Urine Bacteria (None Seen) /HPF Urine Culture Reflexed (NO) - Progress Progress: improved, re-examined Progress Note: 01/20/25 20:51 My medical decision making and the assignment of moderate complexity of this patient's medical issue today is based on review of the patient's past medical history, review the patient's medication list, review the patient drug allergy list, history present illness and physical findings on examination. Workup in this patient includes placement of intravenous line, CBC, CMP, magnesium level, urinalysis, twelve-lead EKG, troponin level and infusion of IV crystalloid. Differential diagnosis includes was not limited to arrhythmia, myocardial infarction, electrolyte abnormalities, anemia, urinary tract infection, dehydration 01/20/25 21:41 I interpreted the patient's laboratory data results. Based on laboratory data results, the patient does have hyponatremia with a value of 128. A BNP level of over 1700, and a magnesium that is low at 1.5, his white count is 35,000. I spoke with Dr. Spear's nurse practitioner Violeta Clark who reviewed the patient's clinic chart. The patient is on prednisone and was given prednisone and Neulasta chemotherapy 1 week ago. She told me she is not surprised that the white count is at 35,000. She stated that we should rehydrate him and as long as there is no fevers and no signs of infection and patient clinically has improved, he may be discharged to home. He will call the oncologist office tomorrow, 01/21/2025. 01/20/25 21:45 We will try to maintain a balance between providing the patient with intravenous crystalloid but also not fluid overloading. We will provide him with 500 mL more of crystalloid, 20 mg of intravenous Lasix and 400 mg of oral magnesium. Counseled pt/family regarding: lab results, diagnosis, need for follow-up Medical Desision Making - Independent Historian Additional History obtained from: Spouse - Diagnostic Testing Diagnostic test were ordered, analyzed, and reviewed by me: Yes - Risk of complications Low Risk: Low risk of morbidity from additional dx testing or treatment - Departure Departure Disposition: Home Clinical Impression: Dehydration, Hyponatremia, Hypomagnesemia, Elevated brain natriuretic peptide (BNP) level, Leukocytosis Condition: Stable Critical Care Time: No Referrals: JOSEPH KYLE [Primary Care Provider, [facility]] - Follow up/PCP as directed Additional Instructions: Drink plenty fluids. Take your medications as prescribed. Call your oncologist tomorrow morning, 01/21/2025, to make arrangements for follow-up appointment for further evaluation and management and to be seen in the next 2 to 3 days
[2025-01-20 20:11] VITALS: TEMP 97
[2025-01-20 20:35] LABS: Hematocrit 30.6 % (40.1-51.0); Hemoglobin 10.1 g/dL (13.7-17.5); Mean Corpuscular Hemoglobin 27.2 pg (25.7-32.2); Mean Corpuscular Hgb Concent. 33.0 g/dL (32.3-36.5); Platelet Count 324 x10^3/uL (163-337); Red Blood Count 3.71 x10^6/uL (4.63-6.08)
[2025-01-20 20:40] LABS: White Blood Count 35.7 x10^3/uL (4.23-9.07)
[2025-01-20 20:51] LABS: Calcium 8.3 mg/dL (8.4-10.2); Carbon Dioxide 25.0 mmol/L (22-30); Creatinine 1 1.38 mg/dL (0.66-1.25); EST GLOMERULAR FILTRATION RATE 52.0 ML/MIN; Glucose 146.0 mg/dL (74-106); NT PRO BNPII 1740.0 pg/mL (<300); Potassium 3.9 mmol/L (3.5-5.1); SGOT/AST 24.0 U/L (17-59); SGPT/ALT 21.0 U/L (0-50); Total Protein 5.8 g/dL (6.3-8.2)
[2025-01-20 21:38] LABS: Glucose, Urine Negative (Negative); Protein,Urine Dip 300 (Negative); RBC 51-100 /HPF (0-5); WBC >100 /HPF (0-5)
[2025-01-20] MEDS ORDERED: MAG-OX 400 ONE (21:49)
[2025-01-20] MEDS ORDERED: Lasix 20 MG/2 ML ONE (21:49)
[2025-01-20] MEDS: MAG-OX 400 PO ONE (21:52)
[2025-01-20] MEDS: Lasix 20 MG/2 ML IV ONE (21:52)
[2025-01-20 22:10] VITALS: O2SAT 98
[2025-01-20] MEDS ORDERED: ROCEPHIN 1 GM / 100 ML NaCl 1 GM/100 ML IVPB IV ONE (22:21)
[2025-01-20] MEDS: ROCEPHIN 1 GM / 100 ML NaCl 1 GM/100 ML IVPB IV STA (22:25)
[2025-01-20 23:08] VITALS: BP 134/67; PULSE 72; RESP 18
[2025-01-20 23:50] LABS: BAND 12 % (0.0-2.0); Total Cells Counted 100
== END 2025-01-20 23:05 | disposition home or self-care (01) ==
LOC: ED 19:47
DX: E86.0 Dehydration (principal); E87.1 Hypo-osmolality and hyponatremia; E83.42 Hypomagnesemia; R79.89 Other specified abnormal findings of blood chemistry; D72.829 Elevated white blood cell count, unspecified; N39.0 Urinary tract infection, site not specified; R53.1 Weakness; E11.9 Type 2 diabetes mellitus without complications; I10 Essential (primary) hypertension; Z79.84 Long term (current) use of oral hypoglycemic drugs; Z79.52 Long term (current) use of systemic steroids; Z79.01 Long term (current) use of anticoagulants; Z79.899 Other long term (current) drug therapy